=== PATIENT | male | born 1950 | race Caucasian/White ===

== ENCOUNTER 2016-06-29 21:30 | Inpatient (IN) | payer OTHER ==
[~2016-06-29] VITALS: Ht 177.8 cm; Wt 85.3 kg
[2016-06-29] MEDS ORDERED: SIMV20TA2 PO (21:35)
[2016-06-29] MEDS ORDERED: FLM4 PO (21:35)
[2016-06-29] MEDS ORDERED: ONDANSETRON INJ 2 MG/ML 2 ML VIAL ONE (21:44)
[2016-06-29] MEDS ORDERED: FENTANYL CITRATE INJ 50 MCG/1 ML 2 ML VIAL ONE (21:47)
[2016-06-29] MEDS ORDERED: HEPARIN SOD (PORCINE) 1000 UNIT/ML 10 ML VIAL ONE (21:47)
[2016-06-29] MEDS ORDERED: NiCARDipine HCL INJ 2.5 MG/ML 10 ML AMP ONE (21:47)
[2016-06-29] MEDS ORDERED: NITROGLYCERIN/D5W 100MCG/ML 20ML SYR ONE (21:48)
[2016-06-29] MEDS ORDERED: MIDAZOLAM HCL 1 MG/ML 2ML VIAL ONE (21:48)
[2016-06-29 21:52] LABS: BASO % 0.2 %; BASO ABS # 0.02 K/uL (0-0.2); COMPLETE YES; EOS % 0.8 %; HEMATOCRIT 40.9 % (42-52); IG% 0.2 %; LYMPH % 16.5 %; LYMPH ABS # 2.05 K/uL (1.2-3.4); MEAN CELL VOLUME 89.7 fL (80-100); MEAN CORPUSCULAR HEMOGLOBIN 30.5 pg (25-34); MEAN PLATELET VOLUME 10.4 fL (7.4-10.4); MONO % 3.9 %; NEUT % 78.4 %; PLATELET COUNT 190 K/uL (130-400); RED BLOOD COUNT 4.56 M/uL (4.7-6.1); WHITE BLOOD COUNT 12.44 K/uL (4.8-10.8)
[2016-06-29 21:56] LABS: ISTAT CREATININE 1.2 mg/dl (0.6-1.3); ISTAT HEMOGLOBIN 13.9 g/dl (14.0-18.0); ISTAT IONIZED CALCIUM 1.08 mmol/l (1.12-1.32)
[2016-06-29 22:06] LABS: INR 0.9 (0.9-1.1); PARTIAL THROMBOPLASTIN RATIO 0.9; PROTHROMBIN TIME (PATIENT) 10.1 SECONDS (9.0-12.0)
--- NOTE | 2016-06-29 22:11 | DIAGNOSTIC IMAGING REPORT ---
CHEST ONE VIEW PORTABLE HISTORY: Atypical CHEST PAIN COMPARISON: None. FINDINGS: The lungs are clear. Cardiac silhouette is normal in size. No pleural effusions. No pneumothorax. IMPRESSION: No acute process. Electronically signed by: Javier Black M.D. 06/29/2016 10:09 PM Dictated Date/Time: 06/29/2016 10:09 PM
[2016-06-29 22:16] LABS: BUN/CREATININE RATIO 17.5 (10-20); CREATININE 1.3 mg/dl (0.60-1.40); POTASSIUM 3.4 mmol/L (3.5-5.1)
[2016-06-29 22:17] LABS: CALCIUM 8.9 mg/dl (8.5-10.1)
[2016-06-29 22:21] LABS: CKMB/CK RATIO 4.4 (0-3.0)
[2016-06-29 23:00] VITALS: BP 116/72; PULSE 79; TEMP 36.6; O2SAT 97; Ht 177.8 cm; Wt 85.3 kg
--- NOTE | 2016-06-29 23:11 | Critical Care Consultation ---
Critical Care Consultation Date of Consultation: June 29, 2016. Attending Physician: Dr. Espinoza Reason for Consultation: Chest Pain 2/2 STEMI History of Present Illness Ken Matt is a 46-year-old male who presented to the emergency Department at [facility] via EMS after experiencing sudden onset 10 out of 10 chest pain while weed eating at home this afternoon. He states the pain originally came on directly over his mid sternum and caused him to stop his activity. He states that he started to have back to the house and at times had to sit down secondary to the pain and take breaks. He states it took approximately 2-3 attempts to get back to the house. After approximately 20 minutes the pain subsided. He states that he did take one aspirin that he allow to dissolve under his tongue. Pain subsided to the extent that he was able to go upstairs and shower and change in the fresh clothing. Afterwards he started to feel a dull ache return at which time he became diaphoretic and nauseous. He denies any vomiting during this period. At this time he called his and alerted her to what was going on. EMS was called and during his trip into the hospital the pain returned. According to him he received morphine at this time; which did take away the extreme pain but he could still feel a dull ache in the sternum. Upon arrival in the emergency room patient's pain was rated at a 2 out of 10. He did received aspirin, nitroglycerin, and morphine prior to arrival from EMS. He denies that the pain he felt radiated or moved anywhere other than the midsternum. He denies recent illness, fever, or chills. He has experienced no numbness or tingling. Patient underwent an EKG in the emergency department that demonstrated ST elevation anteriorly with T-wave changes consistent with an NV. Reciprocal changes were noted in the inferior leads. Patient was taken to the [facility] by Dr. Hernandez; where his proximal to mid LAD was ballooned without stenting via a right radial approach. TR Band is currently in place with 14cc of air. Pt has Integrilin running via PIV. I've been told at this point due to multivessel disease and a need for bypass surgery patient is to be transferred non-emergently to alternate facility in the morning. Patient arrived in the ICU pain-free. He is alert and oriented 4 and able to recall the events of the day. Family is now at bedside. Past Medical/Surgical History Past medical history BPH Hyperlipidemia Appendicitis STEMI to LAD Past surgical history Coronary Angioplasty Appendectomy Tonsillectomy/ adenoidectomy Colonoscopy 06/04/2016 Family History Diabetes mellitus MOTHER FH: NV (myocardial infarction) MOTHER ( age 72) Stroke GRANDMOTHER Social History Smoking Status: Never Smoker Smokeless Tobacco Use: No Drug Use: none Marital Status: Housing Status: lives with family Occupation Status: employed ([employer]) Allergies Coded Allergies: Penicillins (Unverified Allergy, Unknown, UNKNOWN, 06/29/16) Home Medications Scheduled Simvastatin (Zocor), 20 MG PO QPM Tamsulosin HCl (Tamsulosin HCl), 0.4 MG PO HS Review of Systems 12 systems reviewed and negative other than previously mentioned in the HPI. Physical Exam Date Time Temp Pulse Resp B/P Pulse Ox O2 Delivery O2 Flow Rate FiO2 06/29/16 21:51 119/71 06/29/16 21:50 Nasal Cannula 2.0 06/29/16 21:50 69 133/74 99 06/29/16 21:45 64 100 06/29/16 21:41 122/65 06/29/16 21:40 72 100 06/29/16 21:36 115/73 06/29/16 21:36 100 Nasal Cannula 2.0 06/29/16 21:35 67 06/29/16 21:35 67 99 06/29/16 21:34 121/67 06/29/16 21:32 36.5 68 16 115/73 100 Nasal Cannula 2.0 06/29/16 21:32 100 Room Air 2.0 Vital Signs - as noted Laboratory Data - as noted Physical Exam: General - NAD Eyes - PERRL, EOMI No icterus, gaze conjugate ENT - Mucosa moist, no lesions or candidiasis Neck - Supple, trachea midline, no masses or lymphadenopathy, no JVD or bruits Lungs - No paradoxical chest wall movement, clear to auscultation bilaterally, no wheezes, rales, or rhonchi Heart - Reg rate and rhythm, No murmur, rubs, clicks, or gallops appreciated Abdomen - BS present, no bruits noted, tympanic to percussion, soft, nontender, nondistended, no organomegaly Extremities - No edema, pedal pulses intact Neuro - A&O x 4 Strength extremities equal and appropriate bilaterally Reflexes: Normal and equal CN:PERRL, EOMI, no facial asymmetry, uvula/tongue midline Laboratory Results Last 24 Hours Test 06/29/16 21:37 06/29/16 21:40 06/29/16 21:44 06/29/16 21:45 Creatine Kinase MB Ratio 4.4 Bedside Troponin I 0.060 ng/ml Bedside Hemoglobin 13.9 g/dl Bedside Hematocrit 41 % Bedside Sodium 140 mEq/L Bedside Potassium 3.5 mEq/L Bedside Chloride 101 mEq/L Bedside Total CO2 22 mEq/l Anion Gap 21.0 mmol/L 9.0 mmol/L Bedside Blood Urea Nitrogen 23 mg/dl Bedside Creatinine 1.2 mg/dl Bedside Glucose (other) 157 mg/dl Bedside Ionized Calcium (River) 1.08 mmol/l White Blood Count 12.44 K/uL Red Blood Count 4.56 M/uL Hemoglobin 13.9 g/dL Hematocrit 40.9 % Mean Corpuscular Volume 89.7 fL Mean Corpuscular Hemoglobin 30.5 pg Mean Corpuscular Hemoglobin Concent 34.0 g/dl Platelet Count 190 K/uL Mean Platelet Volume 10.4 fL Neutrophils (%) (Auto) 78.4 % Lymphocytes (%) (Auto) 16.5 % Monocytes (%) (Auto) 3.9 % Eosinophils (%) (Auto) 0.8 % Basophils (%) (Auto) 0.2 % Neutrophils # (Auto) 9.76 K/uL Lymphocytes # (Auto) 2.05 K/uL Monocytes # (Auto) 0.48 K/uL Eosinophils # (Auto) 0.10 K/uL Basophils # (Auto) 0.02 K/uL RDW Standard Deviation 42.3 fL RDW Coefficient of Variation 13.0 % Immature Granulocyte % (Auto) 0.2 % Immature Granulocyte # (Auto) 0.03 K/uL Prothrombin Time 10.1 SECONDS Prothromb Time International Ratio 0.9 Activated Partial Thromboplast Time 24.6 SECONDS Partial Thromboplastin Ratio 0.9 Sodium Level 139 mmol/L Potassium Level 3.4 mmol/L Chloride Level 104 mmol/L Carbon Dioxide Level 26 mmol/L Blood Urea Nitrogen 23 mg/dl Creatinine 1.30 mg/dl Est Creatinine Clear Calc Drug Dose 59.3 ml/min Estimated GFR () 66.8 Estimated GFR (Non- 57.7 BUN/Creatinine Ratio 17.5 Random Glucose 152 mg/dl Calcium Level 8.9 mg/dl Total Bilirubin 0.6 mg/dl Direct Bilirubin 0.1 mg/dl Aspartate Amino Transf (AST/SGOT) 24 U/L Alanine Aminotransferase (ALT/SGPT) 30 U/L Alkaline Phosphatase 60 U/L Total Creatine Kinase 152 U/L Creatine Kinase MB 6.7 ng/ml Total Protein 7.2 gm/dl Albumin 3.7 gm/dl Lipase 180 U/L Test 06/29/16 22:26 Kaolin Activated Coagulation Time 420 SECONDS Diagnostic Results EKG: Indication: chest pain Rate (beats per minute): 65 Rhythm: normal sinus Findings: other (ST and T wave elevation anteriorly consistent with NV) Comparison ECG Date: no prior available Change: Prehospital EKG #1: sinus bradycardia, rate 52, inferior and anterior ST abnormality, no old for comparison Prehospital EKG # 2: NSR, rate 66, ST segment elevation anteriorly with reciprocal inferior changes consistent with NV. Prehospital EKG #3: NSR, rate 67, anterior NV, no change from EKG #2 CHEST ONE VIEW PORTABLE HISTORY: Atypical CHEST PAIN COMPARISON: None. FINDINGS: The lungs are clear. Cardiac silhouette is normal in size. No pleural effusions. No pneumothorax. IMPRESSION: No acute process. Electronically signed by: Javier Black M.D. 06/29/2016 10:09 PM Dictated Date/Time: 06/29/2016 10:09 PM Assessment & Plan (1) Acute anterior myocardial infarction (2) High cholesterol Cardiac: * Right radial approach with ballooning to the anterior to middle LAD by Dr. Hernandez * Spoke with Dr. Hernandez: Plan to continue Integrilin indefinitely until transfer and surgical plan from [place] * Plan to transfer to [place] in the morning to a facility with coronary bypass capabilities * Trend cardiac enzymes * Monitor on telemetry * TR Band in place on right radial approach * Mild bleeding continues when pressure reduced; continue to removed per protocol * Begin post NV medications in the morning * Lopressor 25 mg every 12 * Aspirin 81 mg qAM PO * Lisinopril 5 mg qAM PO * Atorvastatin 80 mg qAM PO * EKG in AM and with recurrent Chest Pain Pulmonary: * Currently stable with adequate saturation and without complaint of SOB * Supplemental oxygen as needed * No known smoking history Neuro: * Pain well controlled * Alert provider to recurrent chest pain GI: * Begin AHA diet with breakfast * Patient states no change in bowel habits * Protonix 40 mg qDaily PO in place * Bowel Regimen in place : * Replacement fluids at 125mL/hr via NSS * No Cannon in place, patient voiding * Monitor daily labs Endocrine: * No past medical history for diabetes/thyroid disease * Accu-Cheks per protocol Infectious disease: * No acute process * Monitor fever curve and daily CBC Heme: * H&H & Plts stable * No signs of gross bleeding * Monitor daily CBC * DVT Prophylaxis: SCDs ordered (pt received Heparin 13k Units and currently on Integrilin infusion) Access: [address], maintain 2 sites. Currently no indication for central access. CCT: 0 minutes; Level 3 Inpatient H&P; Not including any billable procedures. Thank you for including us in the care of this patient. Please review Dr. Gareth Castellon's addendum for further recommendations. I have personally evaluated and examined this patient. I agree with assessment and plan of Ori Stiles PA-C. Asymptomatic during my evaluation, will continue Integrilin during transfer. Allowed clears until transfer time determined.
[2016-06-29 23:31] VITALS: BP 116/72; PULSE 76; O2SAT 96
--- NOTE | 2016-06-29 23:31 | EMERGENCY ROOM VISIT NOTE ---
History Report prepared by Jannette: Yandy Turner Under the Supervision of: Dr. Gareth Oropeza M.D. First contact with patient: 21:24 Chief Complaint: CHEST PAIN Stated Complaint: CHEST PAIN History of Present Illness The patient is a 66 year old male who presents to the Emergency Room with complaints of persistent chest pain starting 2 hours ago. He was out weed whacking when the pain started. He felt a sharp pain in his sternum. He was diaphoretic, nauseous, and lightheaded. At worst he rates his discomfort as a 10 /10 in severity. He comes to the ED by EMS. 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 He currently rates his discomfort as a 2/10 in severity after the morphine. He denies any arm pain, neck pain, or back pain. He did not vomit. He denies any pain or swelling in the legs, melena, or hematochezia. He has a history of high cholesterol. He denies any family history of heart problems. He denies smoking. 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 Source of History: patient, spouse/significant other, EMS Onset: 2 hours ago Position: chest Symptom Intensity: 10/10 at worst Quality: sharp Timing: other (persistent) Modifying Factors (Relieving): other (morphine) Associated Symptoms: + diaphoresis, + nausea, No back pain, No hematochezia , No melena, No neck pain, No vomiting Note: Pt reports feeling lightheaded. Pt denies arm pain, pain or swelling in the legs. Review of Systems See HPI for pertinent positives & negatives. A total of 10 systems reviewed and were otherwise negative. Past Medical & Surgical Medical Problems: (1) High cholesterol Old medical records were attempted to be reviewed but there are no old records at this hospital. Nurse's notes were reviewed and I agree with. Family History No pertinent family history stated. Social History Marital Status: Housing Status: lives with family Occupation Status: employed Current/Historical Medications Scheduled Simvastatin (Zocor), 20 MG PO QPM Tamsulosin HCl (Tamsulosin HCl), 0.4 MG PO HS Allergies Coded Allergies: Penicillins (Unverified Allergy, Unknown, UNKNOWN, 06/29/16) Physical Exam Vital Signs Date Time Temp Pulse Resp B/P Pulse Ox O2 Delivery O2 Flow Rate FiO2 06/29/16 23:10 70 16 136/95 95 Room Air 06/29/16 23:00 70 16 126/80 95 Room Air 06/29/16 21:51 119/71 06/29/16 21:50 Nasal Cannula 2.0 06/29/16 21:50 69 133/74 99 06/29/16 21:45 64 100 06/29/16 21:41 122/65 06/29/16 21:40 72 100 06/29/16 21:36 115/73 06/29/16 21:36 100 Nasal Cannula 2.0 06/29/16 21:35 67 06/29/16 21:35 67 99 06/29/16 21:34 121/67 06/29/16 21:32 36.5 68 16 115/73 100 Nasal Cannula 2.0 06/29/16 21:32 100 Room Air 2.0 Physical Exam General: Mildly ill appearing middle aged male who complains of 2/10 chest discomfort. Well developed well nourished, breathing comfortably on room air. Normal speech HEENT: Normal cephalic atraumatic. Pupils are equal round and reactive to light. Sclerae are anicteric. Extraocular movements are intact. Oropharynx is pink with moist mucous membranes. No swelling of the mouth lips or tongue. Neck: Supple with a midline trachea. No meningeal signs or stiffness, no JVD or bruits. No Stridor. Chest: Clear to auscultation bilaterally. No wheezes or rhonchi. No increased work of breathing. Heart: regular rate and rhythm. Abdomen: Soft nontender, nondistended without rebound guarding or rigidity. Extremities: No cyanosis clubbing or edema. No calf tenderness or assymetry Spine/Back. Non tender to palpation. No CVA tenderness Skin: Good turgor without rashes. Neurologic exam: Cranial nerves two through 12 are intact. Motor and sensation are intact and symmetrical throughout. Medical Decision & Procedures ER Provider Diagnostic Interpretation: X-ray results as stated below per interpretation by me: Chest X-ray: No acute infiltrate, failure, or pneumothorax. Laboratory Results 06/29/16 21:45 Red Blood Count 4.56, Mean Corpuscular Volume 89.7, Mean Corpuscular Hemoglobin 30.5, Mean Corpuscular Hemoglobin Concent 34.0, Mean Platelet Volume 10.4, Neutrophils (%) (Auto) 78.4, Lymphocytes (%) (Auto) 16.5, Monocytes (%) (Auto) 3.9, Eosinophils (%) (Auto) 0.8, Basophils (%) (Auto) 0.2, Neutrophils # (Auto) 9.76, Lymphocytes # (Auto) 2.05, Monocytes # (Auto) 0.48, Eosinophils # (Auto) 0.10, Basophils # (Auto) 0.02 06/29/16 21:45 Test 06/29/16 21:40 06/29/16 21:44 06/29/16 21:45 06/29/16 22:26 Bedside Troponin I 0.060 ng/ml (0-0.045) Bedside Hemoglobin 13.9 g/dl (14.0-18.0) Bedside Hematocrit 41 % (42-52) Bedside Sodium 140 mEq/L (135-144) Bedside Potassium 3.5 mEq/L (3.3-5.0) Bedside Chloride 101 mEq/L (101-112) Bedside Total CO2 22 mEq/l (24-31) Bedside Blood Urea Nitrogen 23 mg/dl (7-18) Bedside Creatinine 1.2 mg/dl (0.6-1.3) Bedside Glucose (other) 157 mg/dl (70-99) Bedside Ionized Calcium (River) 1.08 mmol/l (1.12-1.32) White Blood Count 12.44 K/uL (4.8-10.8) Red Blood Count 4.56 M/uL (4.7-6.1) Hemoglobin 13.9 g/dL (14.0-18.0) Hematocrit 40.9 % (42-52) Mean Corpuscular Volume 89.7 fL (80-100) Mean Corpuscular Hemoglobin 30.5 pg (25-34) Mean Corpuscular Hemoglobin Concent 34.0 g/dl (32-36) Platelet Count 190 K/uL (130-400) Mean Platelet Volume 10.4 fL (7.4-10.4) Neutrophils (%) (Auto) 78.4 % Lymphocytes (%) (Auto) 16.5 % Monocytes (%) (Auto) 3.9 % Eosinophils (%) (Auto) 0.8 % Basophils (%) (Auto) 0.2 % Neutrophils # (Auto) 9.76 K/uL (1.4-6.5) Lymphocytes # (Auto) 2.05 K/uL (1.2-3.4) Monocytes # (Auto) 0.48 K/uL (0.11-0.59) Eosinophils # (Auto) 0.10 K/uL (0-0.5) Basophils # (Auto) 0.02 K/uL (0-0.2) RDW Standard Deviation 42.3 fL (36.4-46.3) RDW Coefficient of Variation 13.0 % (11.5-14.5) Immature Granulocyte % (Auto) 0.2 % Immature Granulocyte # (Auto) 0.03 K/uL (0.00-0.02) Prothrombin Time 10.1 SECONDS (9.0-12.0) Prothromb Time International Ratio 0.9 (0.9-1.1) Activated Partial Thromboplast Time 24.6 SECONDS (21.0-31.0) Partial Thromboplastin Ratio 0.9 Anion Gap 9.0 mmol/L (3-11) Est Creatinine Clear Calc Drug Dose 59.3 ml/min Estimated GFR () 66.8 Estimated GFR (Non- 57.7 BUN/Creatinine Ratio 17.5 (10-20) Calcium Level 8.9 mg/dl (8.5-10.1) Total Bilirubin 0.6 mg/dl (0.2-1) Direct Bilirubin 0.1 mg/dl (0-0.2) Aspartate Amino Transf (AST/SGOT) 24 U/L (15-37) Alanine Aminotransferase (ALT/SGPT) 30 U/L (12-78) Alkaline Phosphatase 60 U/L (45-117) Total Creatine Kinase 152 U/L (39-308) Creatine Kinase MB 6.7 ng/ml (0.5-3.6) Creatine Kinase MB Ratio 4.4 (0-3.0) Total Protein 7.2 gm/dl (6.4-8.2) Albumin 3.7 gm/dl (3.4-5.0) Lipase 180 U/L (73-393) Kaolin Activated Coagulation Time 420 SECONDS (94-140) Laboratory studies as stated above per my review. Medications Administered Medications (Trade) Dose Ordered Sig/Lou Route Start Time Stop Time Status Last Admin Dose Admin Ondansetron HCl (Zofran Inj) 4 mg K-MED ONCE .ROUTE 06/29/16 21:44 06/29/16 21:45 DC 06/29/16 21:44 4 MG Heparin Sodium (Porcine) (Heparin Iv Bolus) 10,000 unit STK-MED ONCE .ROUTE 06/29/16 21:47 06/29/16 21:48 DC 06/29/16 21:47 10,000 UNIT Fentanyl Citrate (Fentanyl Inj) 100 mcg STK-MED ONCE .ROUTE 06/29/16 21:47 06/29/16 21:48 DC 06/29/16 21:47 100 MCG Midazolam HCl (Versed Inj) 2 mg STK-MED ONCE .ROUTE 06/29/16 21:48 06/29/16 21:49 DC 06/29/16 21:48 1 MG ECG Indication: chest pain Rate (beats per minute): 65 Rhythm: normal sinus Findings: other (ST and T wave elevation anteriorly consistent with WY) Comparison ECG Date: no prior available Change: Prehospital EKG #1: sinus bradycardia, rate 52, inferior and anterior ST abnormality, no old for comparison Prehospital EKG # 2: NSR, rate 66, ST segment elevation anteriorly with reciprocal inferior changes consistent with WY. Prehospital EKG #3: NSR, rate 67, anterior WY, no change from EKG #2 ED Course 2130: Past medical records reviewed. The patient was evaluated in room A1, and a complete history and physical examination were performed. 2137: I spoke with the patient's . I updated her on what is happening. 2143: Zofran Inj 4 mg IV. 2154: I discussed the patient's case with Dr. Hernandez, [facility] [place] - cardiology. The patient will be taken to the blood bank laboratory technician. 2157: I reevaluated the patient. He is comfortable. I updated him on the results and treatment plan. He verbalized understanding and agreement. He will be taken to the blood bank laboratory technician. Medical Decision Differentials include, but are not limited to; acute WY, aortic pathology, unstable angina, CHF, arrhythmia, electrolyte or metabolic abnormality. This patient comes in after having chest pain. EMS called ahead of time and the patient had findings on the EKG very concerning for an acute anterior WY. Several EKGs were sent and this showed evolution. I did call a heart alert prior to his arrival to get the cardiac cath team ready. He was given aspirin and nitroglycerin and morphine prior to arrival in the morphine seemed to help the pain. Upon arrival he only had 2 out of 10 pain. A second IV was established. Chest x-ray does not suggest congestive heart failure, pneumonia, or pneumothorax or aortic pathology. He has normal kidney function. Troponin was mildly elevated at 0.06. I talked to the patient and his family at length. He did have an episode of nausea and was given Zofran 4 mg IV was feeling much better Dr. Hernandez did arrive and did take him emergently the Rolled Glass Crosscutter for acute treatment of his acute [place]Y. Consults Time Called: 2144 Consulting Physician: Dr. Hernandez, [facility] [place] [place] - cardiology Returned Call: [phone] I discussed the patient's case with him. The patient will be taken to the blood bank laboratory technician. Impression Primary Impression: Acute anterior myocardial infarction Critical Care Due to the patient's acute WY and need for emergent care and frequent reassessments, I have personally spent greater than 30 minutes of critical care time in the direct management of this patient. This includes bedside care, interpretation of diagnostic studies, and testing, discussion with consultants, patient, and family members, and other required patient management activities. This 30 minutes is in excess of all separately billable procedures. Scribe Attestation The scribe's documentation has been prepared under my direction and personally reviewed by me in its entirety. I confirm that the note above accurately reflects all work, treatment, procedures, and medical decision making performed by me. Departure Information Dispostion Other (blood bank laboratory technician) Patient Instructions [facility]
[2016-06-29 23:45] VITALS: BP 110/66; PULSE 77; O2SAT 97
[2016-06-29] MEDS ORDERED: EPTIFIBATIDE BOLUS / DRIP IV ONE (23:45)
[2016-06-29] MEDS ORDERED: NITROGLYCERIN 0.4 MG SL PER TAB CHARGE SL PRN (23:45)
[2016-06-29] MEDS ORDERED: SODIUM CHLORIDE 0.9% 1000ML 1,000 ML IV SCH (23:45)
[2016-06-29] MEDS ORDERED: LORAZEPAM INJ 0.5 MG in SYRINGE 0 ML IV PRN (23:45)
[2016-06-29] MEDS ORDERED: ONDANSETRON INJ 2 MG/ML 2 ML VIAL IV PRN (23:45)
[2016-06-29] MEDS ORDERED: ATROPINE SULFATE 0.1 MG/ML 5ML SYR IV PRN (23:45)
[2016-06-29] MEDS ORDERED: ALUMINUM/MAGNESIUM/SIMETH (MAALOX MAX) 30 ML UDC PO PRN (23:45)
[2016-06-29] MEDS ORDERED: MAGNESIUM HYDROXIDE SUSP 30 ML UDC PO PRN (23:45)
[2016-06-29] MEDS ORDERED: ACETAMINOPHEN 325 MG TAB PO PRN (23:45)
[2016-06-29] MEDS ORDERED: MoRPHine SULFATE 2 MG/ML CARP IV PRN (23:45)
[2016-06-29 23:46] VITALS: BP 114/65; PULSE 75; O2SAT 97
--- NOTE | 2016-06-29 23:50 | Procedure Note ---
Pre-Mod Sedation Assessment General Date of Moderate Sedation: June 29, 2016. Vital Signs: Vital Signs Past 12 Hours Date Time Temp Pulse Resp B/P Pulse Ox O2 Delivery O2 Flow Rate FiO2 06/29/16 23:10 70 16 136/95 95 Room Air 06/29/16 23:00 70 16 126/80 95 Room Air 06/29/16 21:51 119/71 06/29/16 21:50 Nasal Cannula 2.0 06/29/16 21:50 69 133/74 99 06/29/16 21:45 64 100 06/29/16 21:41 122/65 06/29/16 21:40 72 100 06/29/16 21:36 115/73 06/29/16 21:36 100 Nasal Cannula 2.0 06/29/16 21:35 67 06/29/16 21:35 67 99 06/29/16 21:34 121/67 06/29/16 21:32 36.5 68 16 115/73 100 Nasal Cannula 2.0 06/29/16 21:32 100 Room Air 2.0 Review Cardiovascular: regular rate, rhythm, no edema, no gallop, no JVD, no murmur, normal peripheral pulses Abdomen: normal bowel sounds, non tender, soft, no organomegaly, no pulsatile mass Lungs: lungs clear Pre-Sedation Airway Assessment Oral Cavity: Capped Teeth Able to Visualize Vocal Cords: No Short Thick Neck: No Hx of Sleep Apnea: No Smoking Status: Never Smoker ASA Classification: Class III Procedure Planning Contraindications-for Mod Sed: None Yes Notes The planned sedation has been discussed with the patient and consent obtained. I have identified the patient, determined the appropriateness of sedation and have assessed the patient immediately prior to the procedure. All medicine(s) and interventions are by my order.
--- NOTE | 2016-06-29 23:51 | Procedure Note ---
Post-Mod Sedation Assessment General Date of Moderate Sedation June 29, 2016. Vital Signs: Vital Signs Past 12 Hours Date Time Temp Pulse Resp B/P Pulse Ox O2 Delivery O2 Flow Rate FiO2 06/29/16 23:10 70 16 136/95 95 Room Air 06/29/16 23:00 70 16 126/80 95 Room Air 06/29/16 21:51 119/71 06/29/16 21:50 Nasal Cannula 2.0 06/29/16 21:50 69 133/74 99 06/29/16 21:45 64 100 06/29/16 21:41 122/65 06/29/16 21:40 72 100 06/29/16 21:36 115/73 06/29/16 21:36 100 Nasal Cannula 2.0 06/29/16 21:35 67 06/29/16 21:35 67 99 06/29/16 21:34 121/67 06/29/16 21:32 36.5 68 16 115/73 100 Nasal Cannula 2.0 06/29/16 21:32 100 Room Air 2.0 Review - Discharge Criteria Vital Signs Stable: Yes Alert/Oriented/Conversant: Yes Returned to Baseline Mental St: Yes Nausea Absent/Minimal: Yes Pain/Discomfort/Absent/Minimal: Yes Normal/Baseline Respirations: Yes Active Bleeding?: No Pt Received D/C Instructions: N/A Prescriptions Given: None Specific Proced. D/C Criteria Distal Pulses Present (Cardiac: Yes Groin site assessed-Card Cath: N/A Voided Prior To Discharge: N/A Discharged Patients Adult Escort/Transportation: N/A
[2016-06-29 23:59] VITALS: O2SAT 95
[2016-06-30] VITALS (42 sets, daily range): BP systolic 90–132; BP diastolic 58–70; PULSE 44–83; TEMP 36.5–37; O2SAT 93–100
[2016-06-30 00:23] LABS: HEMATOCRIT 41.3 % (42-52); MEAN CELL VOLUME 90.4 fL (80-100); MEAN CORPUSCULAR HEMOGLOBIN 29.8 pg (25-34); MEAN PLATELET VOLUME 10.2 fL (7.4-10.4); PLATELET COUNT 169 K/uL (130-400); RED BLOOD COUNT 4.57 M/uL (4.7-6.1); WHITE BLOOD COUNT 11.68 K/uL (4.8-10.8)
[2016-06-30 00:36] LABS: MEAN CORPUSCULAR HGB CONC 32.9 g/dl (32-36)
[2016-06-30 00:42] LABS: BASO % 0.1 %; BASO ABS # 0.01 K/uL (0-0.2); COMPLETE YES; EOS % 0.2 %; IG% 0.3 %; LYMPH % 9.2 %; LYMPH ABS # 1.07 K/uL (1.2-3.4); MONO % 2.8 %; NEUT % 87.4 %
[2016-06-30 00:44] LABS: BLOOD UREA NITROGEN 20 mg/dl (7-18); BUN/CREATININE RATIO 18.5 (10-20); CALCIUM 8.1 mg/dl (8.5-10.1); CARBON DIOXIDE 29 mmol/L (21-32); CHLORIDE 107 mmol/L (98-107); GLUCOSE 114 mg/dl (70-99); POTASSIUM 4.1 mmol/L (3.5-5.1); SODIUM 142 mmol/L (136-145)
[2016-06-30 00:48] LABS: CHOLESTEROL 169 mg/dl (0-200); CHOLESTEROL/HDL RATIO 2.7; CKMB/CK RATIO 12.8 (0-3.0); HDL CHOLESTEROL 62 mg/dl; TRIGLYCERIDES 39 mg/dl (0-150); VERY LOW DENSITY LIPOPROT CALC 8 mg/dl
--- NOTE | 2016-06-30 00:52 | Cardiac Catheterization ---
Procedure Note Procedure Date June 30, 2016. Pre-Procedure Diagnosis STEMI AUC Score 9 Procedure(s) Performed Coronary Angiography, Left Heart Cath, LV Angiography, PTCA Voip Engineer Dr. Hernandez Exhaust Worker(s) HOLLIS Hernández Estimated Blood Loss 35 ml Medication(s) Fentanyl, Heparin, Integrilin, Nicardipine (Intra-arterial and intracoronary), Versed, Lidocaine 1% Summary of Findings Clinical indications: Acute anterior ST-elevation myocardial infarction. Only known CAD risk factor is dyslipidemia. Catheterization site: 6 Barb[place] glide sheath slender right radial artery. Catheters: 6 [place] EBU 3.75 guide catheter, 6 [place] JR4 diagnostic catheter, 6 [place] pigtail diagnostic catheter. Interventional equipment: 6 Barb[place] EBU 3.75 guide catheter, Datacratic [place] XT J-tip guidewire, Datacratic Sprinter [id number] 2.5 x 12 millimeter balloon dilatation catheter. Interventional protocol: Intravenous heparin and Integrilin were administered. Therapeutic activated clotting time documented. Nine balloon inflations performed to proximal and mid LAD to maximum inflation pressure 14 atmospheres and maximum duration 14 seconds. Follow-up angiography then performed with the guidewire in place and guidewire withdrawn. Right coronary angiography was performed following completion of LAD PCI. Left heart catheterization left ventricular angiography were then performed. Left ventricular angiography was performed from the 30 degree right anterior oblique projection with a hand injection of contrast dye. Hemostasis: Terumo TR band. Complications: None. The patient was hemodynamically stable throughout the procedure. No significant arrhythmias. Resolution of chest pain following reperfusion of the LAD. Findings: Fluoroscopy revealed mild coronary calcifications.Coronary circulation was right dominant. Large caliber left main coronary artery giving rise to large caliber left anterior descending and left circumflex coronary arteries. The ostium of the LAD had a 75 percent stenosis. The proximal LAD had an eccentric 80 percent stenosis with associated thrombus. At this site the LAD gave rise to very small caliber 1st diagonal artery. The early mid LAD had a 30 percent stenosis then followed by a subtotal 99 percent stenosis. This was then followed by sequential 70 percent stenoses. The mid LAD gave rise to a small caliber 2nd diagonal artery. BREE 1 flow was present into the distal LAD and the 2nd diagonal. Following passage of a guidewire into the distal LAD BREE 2 flow was established to the distal LAD. The LAD was seen to wrap around the apex of the heart as a small caliber vessel. Following PTCA BREE 3 flow was present in the LAD and LAD diagonal. There was brisk flow into the septal perforating branches arising from the LAD. There was a good myocardial blush. After PTCA residual proximal stenosis was 20-30 percent. The residual stenoses in the mid LAD were 10-20 percent, 50 percent, 30 percent. The distal LAD had minor luminal irregularities. It wraps around the apex of the heart as a small caliber vessel. There was no evidence of dissection, residual thrombus, perforation, or distal embolic event. The ostial left circumflex had a 20 percent stenosis. The proximal circumflex had minor luminal irregularities. Mid circumflex gave rise to medium caliber 1st marginal artery. The ostium of the 1st marginal had a 75 percent stenosis. The mid LAD immediately following the origin of the marginal had a 75 percent stenosis. These stenoses were a bifurcation stenosis. The mid left circumflex following the 75 percent stenosis had a possible ulcerated plaque. The distal circumflex gave rise to a long medium to large caliber bifurcating 2nd marginal artery. The right coronary artery was a medium caliber vessel. 20 percent proximal stenosis. Mid RCA with diffuse 20-40 percent stenoses. The mid RCA then had a discrete and eccentric 75 percent stenosis where it gave rise to a right ventricular branch. After the right ventricular branch the early distal RCA had an eccentric 50 percent stenosis. The remainder of the distal RCA had minor luminal irregularities. The distal RCA gave rise to a very small caliber acute marginal artery and a very small caliber PDA. It then gave rise to 2 small caliber posterolateral arteries. Left ventricular angiography revealed the posterobasal, anterobasal, and diaphragmatic segments to contract normally. The apex and anterolateral segments were hypokinetic. No mitral regurgitation. The calculated left ventricular ejection fraction was 57 percent. Plan: The patient has 3 vessel coronary artery disease. The infarct related lesions were the severe proximal and mid LAD stenoses. Successful plain balloon angioplasty to these lesions. The patient still has a moderate ostial LAD stenosis, a moderate bifurcation stenosis in the left circumflex, and moderate stenoses in the RCA. He has good overall LV systolic function. It was felt best not to deploy stents in the proximal and mid LAD. This would have required an extensive amount of stenting. The patient would still be left with a significant ostial LAD stenosis. It is planned for the patient to remain on aspirin and Integrilin at this time. Will be started on beta-jorden and RUPESH-inhibitor therapy. Will be placed on high-intensity statin therapy. Echocardiogram in the morning to further assess left ventricular systolic function and assess valvular function. Serial electrocardiograms and cardiac enzymes. Check lipid profile, direct LDL, hemoglobin A1c. Post PCI CBC and metabolic profiles. Recommend transfer to [facility] in [facility] for consideration of CABG surgery. This is in light of the ostial LAD stenosis, the bifurcation stenosis in the left circumflex, and the 3 vessel coronary artery disease. Hemodynamics Rest Ao: 100/57/77 mm Hg Final Ao: 98/56/75 mm Hg LV: 98/23 mm Hg Recommendations CABG Specimens None Radiation Exposure (mGy) 3136 Contrast (mls) 260 ml Visipaque Fluids (cc crystalloids) 600 Drains none Anesthesia IV Versed and fentanyl, lidocaine 1 percent for local Procedural Complication(s) None Disposition ICU ACC Data Cardiac Status Clinical evaluation leading to the procedure CAD Presntation: STEMI STEMI or Non-STEMI: Thrombolytics: No Anginal Classification: CCS IV Heart Failure: No Cardiogenic Shock w/in 24Hrs: No Cardiac Arrest w/in 24Hrs: No Imaging studies past 6 months: No Stress studies past 6 months: No Standard Exercise Stress Test: No Stress Echocardiogram: No Stress Testing w/SPECT MPI: No Cardiac CTA: No Coronary Anatomy Dominant: Right Left Main (% Stenosis): Normal LAD (% Stenosis): Ostial (75), Proximal (80), Mid (30,99,70,70), Distal (0-10) D1 (% Stenosis): Normal D2 (% Stenosis): Normal Circumflex (% Stenosis): Ostial (20), Proximal (0-10), Mid (75) OM1 (% Stenosis): Ostial (75) OM2 (% Stenosis): Mid (0-10) RCA (% Stenosis): Proximal (20), Mid (diffuse 20-40, 75), Distal (50,0-10) R PDA (% Stenosis): Normal R PL1 (% Stenosis): Normal R PL2 (% Stenosis): Normal Left Ventricular Angiography EF (%): 57 Wall Motion: Inferior (Normal), Apical (Hypokinetic), Anterior (Hypokinetic) Mitral Regurgitation: None Diagnostic Physician's Name: Gasper Hernandez M.D. Status: Emergency Closure Device Percutaneous Entry Location: Radial Closure Device: Radial Band Recommendations: CABG PCI Indication: Immediate PCI for STEMI First Noted: First EKG Lesion Segment Name: mid LAD Culprit Artery: Yes Stenosis Prior to Rx (%): 99,70,70 Chronic Total Occlusion: No IVUS: No FFR: No Pre-Procedure BREE Flow: 1 Previously Treated Lesion: No Lesion Complexity: High/C Lesion Length (mm): 25 Thrombus Present: Yes Bifurcation Lesion: No Guidewire Across Lesion: Yes Guidewire: Stenosis Post-Procedure (%): 10-20,50,30 Post-Procedure BREE Flow: 3 Device(s) Deployed: No Lesion #2 Segment Name: Proximal LAD Culprit Artery: Yes Stenosis Prior to Rx (%): 80 Chronic Total Occlusion: No IVUS: No FFR: No Pre-Procedure BREE Flow: 1 Previously Treated Lesion: No Lesion Complexity: Non-High/Non-C Lesion Length (mm): 10 Thrombus Present: Yes Bifurcation Lesion: No Guidewire Across Lesion: Yes Guidewire: Stenosis Post-Procedure (%): 20-30 Post-Procedure BREE Flow: 3 Device(s) Deployed: No Intraprocedure Events Significant Dissection: No Perforation: No
[2016-06-30] MEDS ORDERED: POTASSIUM CHLORIDE 10 MEQ TABCR PO STA (01:09)
[2016-06-30 01:28] LABS: MAGNESIUM 2.1 mg/dl (1.8-2.4)
[2016-06-30] MEDS: SODIUM CHLORIDE 0.9% 1000ML 1,000 ML IV SCH ×2 (01:33→09:00)
--- NOTE | 2016-06-30 01:41 | History and Physical ---
History & Physical Date & Time of Service: June 30, 2016 at 01:41 Chief Complaint: Chest Pain Primary Care Physician: Yonis Lane M.D. History of Present Illness Source: patient Ken Matt is a 66-year-old with past medical hx of hyperlipidemia, no prior hx of OK or CAD brought it ED via EMS with complain of chest pain after having dinner EKG : demonstrated ST elevation anteriorly with T-wave changes consistent with an OK. Reciprocal changes were noted in the inferior leads. CODE HEART ALERT was called, pt was taken emergently to [facility] processing lab[facility] , found to have diffuse CAD underwent balloon angioplasty of LAD , admitted to ICU post procedure will need to be transferred to Tertiary center with coronary bypass facility for definitive cardiac intervention Past Medical/Surgical History Medical Problems: (1) High cholesterol Status: Chronic Family History Diabetes mellitus MOTHER FH: [place] (myocardial infarction) MOTHER ( age 72) Stroke GRANDMOTHER Social History Smoking Status: Never Smoker Smokeless Tobacco Use: No Drug Use: none Marital Status: Occupational Status: employed ([employer]) Allergies Coded Allergies: Penicillins (Unverified Allergy, Unknown, UNKNOWN, 06/29/16) Home Medications Scheduled Simvastatin (Zocor), 20 MG PO QPM Tamsulosin HCl (Tamsulosin HCl), 0.4 MG PO HS Review of Systems Respiratory: + shortness of breath Cardiovascular: + chest pain, + orthopnea, + palpitations Physical Exam Vital Signs Date Time Temp Pulse Resp B/P Pulse Ox O2 Delivery O2 Flow Rate FiO2 06/30/16 01:02 68 16 106/64 95 Room Air 06/30/16 00:46 68 13 108/63 94 06/30/16 00:31 69 10 108/63 95 06/30/16 00:16 72 23 112/66 95 Room Air 06/30/16 00:01 75 14 119/60 96 Room Air 06/30/16 00:01 75 14 119/60 96 Room Air 06/29/16 23:59 95 Room Air 06/29/16 23:46 75 24 114/65 97 Room Air 06/29/16 23:45 77 22 110/66 97 Room Air 06/29/16 23:31 76 20 116/72 96 Room Air 06/29/16 23:10 70 16 136/95 95 Room Air 06/29/16 23:00 36.6 79 18 116/72 97 Room Air 06/29/16 23:00 70 16 126/80 95 Room Air 06/29/16 21:51 119/71 06/29/16 21:50 Nasal Cannula 2.0 06/29/16 21:50 69 133/74 99 06/29/16 21:45 64 100 06/29/16 21:41 122/65 06/29/16 21:40 72 100 06/29/16 21:36 115/73 06/29/16 21:36 100 Nasal Cannula 2.0 06/29/16 21:35 67 06/29/16 21:35 67 99 06/29/16 21:34 121/67 06/29/16 21:32 36.5 68 16 115/73 100 Nasal Cannula 2.0 06/29/16 21:32 100 Room Air 2.0 General Appearance: no apparent distress Head: normocephalic, atraumatic Eyes: sclerae normal Neck: supple Respiratory/Chest: chest non-tender, lungs clear, normal breath sounds, no respiratory distress Cardiovascular: regular rate, rhythm Abdomen/GI: normal bowel sounds, non tender, soft Extremities/Musculoskelatal: no pedal edema Neurologic/Psych: alert, normal mood/affect, oriented x 3 Skin: normal color, warm/dry, no rash Diagnostics Laboratory Results Results Past 24 Hours Test 06/29/16 21:37 06/29/16 21:40 06/29/16 21:44 06/29/16 21:45 Range/Units Creatine Kinase MB Ratio 4.4 0-3.0 Bedside Troponin I 0.060 0-0.045 ng/ml Bedside Hemoglobin 13.9 14.0-18.0 g/dl Bedside Hematocrit 41 42-52 % Bedside Sodium 140 135-144 mEq/L Bedside Potassium 3.5 3.3-5.0 mEq/L Bedside Chloride 101 101-112 mEq/L Bedside Total CO2 22 24-31 mEq/l Anion Gap 21.0 9.0 3-11 mmol/L Bedside Blood Urea Nitrogen 23 7-18 mg/dl Bedside Creatinine 1.2 0.6-1.3 mg/dl Bedside Glucose (other) 157 70-99 mg/dl Bedside Ionized Calcium (River) 1.08 1.12-1.32 mmol/l White Blood Count 12.44 4.8-10.8 K/uL Red Blood Count 4.56 4.7-6.1 M/uL Hemoglobin 13.9 14.0-18.0 g/dL Hematocrit 40.9 42-52 % Mean Corpuscular Volume 89.7 80-100 fL Mean Corpuscular Hemoglobin 30.5 25-34 pg Mean Corpuscular Hemoglobin Concent 34.0 32-36 g/dl Platelet Count 190 130-400 K/uL Mean Platelet Volume 10.4 7.4-10.4 fL Neutrophils (%) (Auto) 78.4 % Lymphocytes (%) (Auto) 16.5 % Monocytes (%) (Auto) 3.9 % Eosinophils (%) (Auto) 0.8 % Basophils (%) (Auto) 0.2 % Neutrophils # (Auto) 9.76 1.4-6.5 K/uL Lymphocytes # (Auto) 2.05 1.2-3.4 K/uL Monocytes # (Auto) 0.48 0.11-0.59 K/uL Eosinophils # (Auto) 0.10 0-0.5 K/uL Basophils # (Auto) 0.02 0-0.2 K/uL RDW Standard Deviation 42.3 36.4-46.3 fL RDW Coefficient of Variation 13.0 11.5-14.5 % Immature Granulocyte % (Auto) 0.2 % Immature Granulocyte # (Auto) 0.03 0.00-0.02 K/uL Prothrombin Time 10.1 9.0-12.0 SECONDS Prothromb Time International Ratio 0.9 0.9-1.1 Activated Partial Thromboplast Time 24.6 21.0-31.0 SECONDS Partial Thromboplastin Ratio 0.9 Sodium Level 139 136-145 mmol/L Potassium Level 3.4 3.5-5.1 mmol/L Chloride Level 104 98-107 mmol/L Carbon Dioxide Level 26 21-32 mmol/L Blood Urea Nitrogen 23 7-18 mg/dl Creatinine 1.30 0.60-1.40 mg/dl Est Creatinine Clear Calc Drug Dose 59.3 ml/min Estimated GFR () 66.8 Estimated GFR (Non- 57.7 BUN/Creatinine Ratio 17.5 10-20 Random Glucose 152 70-99 mg/dl Calcium Level 8.9 8.5-10.1 mg/dl Total Bilirubin 0.6 0.2-1 mg/dl Direct Bilirubin 0.1 0-0.2 mg/dl Aspartate Amino Transf (AST/SGOT) 24 15-37 U/L Alanine Aminotransferase (ALT/SGPT) 30 12-78 U/L Alkaline Phosphatase 60 45-117 U/L Total Creatine Kinase 152 39-308 U/L Creatine Kinase MB 6.7 0.5-3.6 ng/ml Total Protein 7.2 6.4-8.2 gm/dl Albumin 3.7 3.4-5.0 gm/dl Lipase 180 73-393 U/L Test 06/29/16 22:26 06/30/16 00:05 Range/Units Kaolin Activated Coagulation Time 420 94-140 SECONDS White Blood Count 11.68 4.8-10.8 K/uL Red Blood Count 4.57 4.7-6.1 M/uL Hemoglobin 13.6 14.0-18.0 g/dL Hematocrit 41.3 42-52 % Mean Corpuscular Volume 90.4 80-100 fL Mean Corpuscular Hemoglobin 29.8 25-34 pg Mean Corpuscular Hemoglobin Concent 32.9 32-36 g/dl Platelet Count 169 130-400 K/uL Mean Platelet Volume 10.2 7.4-10.4 fL Neutrophils (%) (Auto) 87.4 % Lymphocytes (%) (Auto) 9.2 % Monocytes (%) (Auto) 2.8 % Eosinophils (%) (Auto) 0.2 % Basophils (%) (Auto) 0.1 % Neutrophils # (Auto) 10.22 1.4-6.5 K/uL Lymphocytes # (Auto) 1.07 1.2-3.4 K/uL Monocytes # (Auto) 0.33 0.11-0.59 K/uL Eosinophils # (Auto) 0.02 0-0.5 K/uL Basophils # (Auto) 0.01 0-0.2 K/uL RDW Standard Deviation 42.7 36.4-46.3 fL RDW Coefficient of Variation 13.0 11.5-14.5 % Immature Granulocyte % (Auto) 0.3 % Immature Granulocyte # (Auto) 0.03 0.00-0.02 K/uL Sodium Level 142 136-145 mmol/L Potassium Level 4.1 3.5-5.1 mmol/L Chloride Level 107 98-107 mmol/L Carbon Dioxide Level 29 21-32 mmol/L Anion Gap 6.0 3-11 mmol/L Blood Urea Nitrogen 20 7-18 mg/dl Creatinine 1.10 0.60-1.40 mg/dl Est Creatinine Clear Calc Drug Dose 70.1 ml/min Estimated GFR () 81.8 Estimated GFR (Non- 70.6 BUN/Creatinine Ratio 18.5 10-20 Random Glucose 114 70-99 mg/dl Calcium Level 8.1 8.5-10.1 mg/dl Magnesium Level 2.1 1.8-2.4 mg/dl Total Creatine Kinase 218 39-308 U/L Creatine Kinase MB 27.9 0.5-3.6 ng/ml Creatine Kinase MB Ratio 12.8 0-3.0 Troponin I 2.970 0-0.045 ng/ml Triglycerides Level 39 0-150 mg/dl Cholesterol Level 169 0-200 mg/dl HDL Cholesterol 62 mg/dl LDL Cholesterol Direct 101 mg/dl LDL Cholesterol, Calculated mg/dl VLDL Cholesterol, Calculated 8 mg/dl Cholesterol/HDL Ratio 2.7 Microbiology Results 06/29/16 MRSA DNA Surveillance Screen, Received Pending Diagnostic Radiology CHEST ONE VIEW PORTABLE HISTORY: Atypical CHEST PAIN COMPARISON: None. FINDINGS: The lungs are clear. Cardiac silhouette is normal in size. No pleural effusions. No pneumothorax. IMPRESSION: No acute process. Electronically signed by: Javier Black M.D. 06/29/2016 10:09 PM Dictated Date/Time: 06/29/2016 10:09 PM Impression Assessment and Plan STEMI / Acute anterior myocardial infarction pt presented with chest pain EKG showed ST elevation in ant lead , reciprocal changed in inf lead -CODE HEART ALERT was called pt was taken to [facility] emergently -underwent cardiac cath by Dr Hernandez by Right radial approach 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 Hernandez D/w Dr Hernandez pt will need continue Integrilin gtt will need to be transferred to [place] in AM for CABG pt remains pain free cont to monitor in ICU started on Cardiac meds : * Lopressor 25 mg every 12 * Aspirin 81 mg qAM PO * Lisinopril 5 mg qAM PO * Atorvastatin 80 mg qAM PO * EKG in AM and with recurrent Chest Pain * ECHO ordered to assess Wall motion abnormality [facility] consulted HYPERLIPIDEMIA: cont High intensity statin dose -atorvastatin 80 mg daily for post [place] protocol FULL CODE DISPOSITION ; pt will need to be transferred to [facility] in AM for evaluation for CABG Level of Care Critical Care Advanced Directives Existing Living Will: No Existing Power of Veneer Taping Machine Offbearer: No Resuscitation Status FULL RESUSCITATION VTE Prophylaxis VTE Risk Assessment Done? Y/N: Yes Risk Level: Moderate Additional Copies To Yonis Lane M.D.
--- NOTE | 2016-06-30 04:27 | CARDIOLOGY CONSULTATION ---
DATE OF CONSULTATION: 06/29/2016 REFERRING PHYSICIAN: Gareth Oropeza MD. CONSULTATION BY: Gasper Hernandez MD. PRIMARY PHYSICIAN: Yonis Lane MD. ATTENDING PHYSICIAN: Shelbi Espinoza MD. HISTORY OF PRESENT ILLNESS: The patient is a 66-year-old white male. No prior history of coronary artery disease. He has dyslipidemia and benign prostatic hypertrophy. No history of hypertension or diabetes mellitus. He is a nonsmoker. No family history of premature coronary artery disease. He was in his normal state of health until the evening of June 29. 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 This was constant. He had associated nausea, weakness, lightheadedness, and diaphoresis. Mild associated dyspnea. He was brought to the Emergency Department by emergency medical services. An electrocardiogram performed by emergency medical services revealed evidence of an acute anterior myocardial infarction. Based on this electrocardiogram, a heart alert was called. He received aspirin, sublingual nitroglycerin, and morphine by EMS. On arrival to the Emergency Department, he was promptly evaluated by Dr. Oropeza. His chest pain intensity had decreased compared to that at home. He was then evaluated by me. He was only complaining of mild chest discomfort at the time of my evaluation. He states that prior to the onset of the chest discomfort on the evening of June 29, he had not been experiencing any recent chest pain or other anginal symptoms. His exercise tolerance had been stable. He had no dyspnea at rest or with his usual activities. No orthopnea, PND, palpitations, lightheadedness, syncope, or peripheral edema. He denied any GI complaints other than the nausea associated with the chest discomfort this evening. In the Emergency Department, he also had an episode of vomiting. He denies any symptoms of GI bleeding. No other bleeding complaints. No cerebrovascular or peripheral vascular complaints. No pulmonary complaints. He does have been benign prostatic hypertrophy for which he takes tamsulosin 0.4 mg at bedtime. The patient was brought emergently to the cardiac catheterization lab following my evaluation of him in the Emergency Department. Cardiac catheterization was performed via a 6-Peruvian sheath in the right radial artery. This revealed a 75% ostial LAD stenosis. This appeared to be stable stenosis. The proximal LAD had an 80% stenosis. The mid LAD had a subtotal 99% stenosis. There is evidence of thrombus at the site of the proximal stenosis as well as in the mid LAD. A PTCA was performed to the proximal and mid LAD with a 2.5 mm diameter balloon. Following balloon angioplasty, BREE 3 flow was present in the LAD. There was no evidence of dissection, thrombus, perforation, or distal embolic event. He had resolution of his chest pain following reperfusion of the LAD. No significant arrhythmias. He was hemodynamically stable. The residual stenosis in the proximal LAD was 20-30%. The residual stenoses in the mid LAD were 10-20%, 50%, and 30%. There was a bifurcation stenosis in the mid left circumflex where it gave rise to the first marginal artery. The bifurcation stenosis was approximately 75%. This involved the mid circumflex and the ostium of the marginal. Following this bifurcation stenosis, the mid circumflex had a possible ulcerated plaque. The mid RCA had a discrete and the eccentric 75% stenosis. Left ventricular angiography following PCI revealed anterolateral and apical hypokinesis. The other LV segments contracted normally. Calculated LV ejection fraction was 57%. No mitral regurgitation. Hemostasis was obtained at the right radial catheterization site with application of a Terumo TR band. Only plain balloon angioplasty was performed to the LAD. PAST MEDICAL HISTORY: 1. Dyslipidemia. 2. BPH. PAST SURGICAL HISTORY: Status post appendectomy at age 19. FAMILY HISTORY: He denies family history of coronary artery disease. SOCIAL HISTORY: The patient is and lives with his . 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 He does not smoke cigarettes. He does not drink alcohol. ALLERGIES AND ADVERSE DRUG REACTIONS: PENICILLIN. MEDICATIONS: At time of admission was simvastatin 20 mg at bedtime and tamsulosin 0.4 mg at bedtime. PHYSICAL EXAMINATION: VITAL SIGNS: On arrival to the Emergency Department, pulse was 68, blood pressure 115/73, pulse oximetry 100% on 2 liters from a nasal cannula oxygen. Oral temperature is 36.5. GENERAL APPEARANCE: Showed him to be in no significant distress. HEAD: Normal. EYES: Pupils equal and round. Anicteric. Conjunctivae normal. No xanthelasma. NECK: No jugular venous distension. Carotids 2/2 bilaterally. Normal upstroke. No bruits. LUNGS: Normal respiratory effort. Clear. No rales or wheezes. HEART: Regular rate and rhythm. S1, S2 normal. No S3 or S4. No murmur or rub. ABDOMEN: Soft. Nontender. No palpable masses or organomegaly. No bruits. Normal bowel sounds. EXTREMITIES: No pretibial edema. No cyanosis or clubbing. PULSES: Distal pulses in all extremities strongly palpable. NEUROLOGICAL: Alert and oriented x3. Motor is grossly intact. PSYCHIATRIC: Affect is normal. DIAGNOSTIC DATA: Electrocardiogram performed by EMS revealed acute anterior myocardial infarction. Chest x-ray without evidence of congestive heart failure or infiltrate. LABORATORY DATA: Revealed WBC 12.44, hemoglobin 13.9, hematocrit 40.9, platelet count 190. INR 0.9, PTT 24.6. Metabolic profile: Sodium 139, potassium 3.4, chloride 104, carbon dioxide 26, BUN 23, creatinine 1.30. Random glucose 152. AST 24. ALT 30. Initial CK 152 with MB of 6.7. Point of care troponin I was 0.060. ASSESSMENT: 1. Status post acute anterior myocardial infarction secondary to severe proximal mid left anterior descending stenoses. There is associated thrombus at the sites. Successful plain balloon angioplasty to the proximal and mid left anterior descending. 2. Three-vessel coronary artery disease. Ostial left anterior descending stenosis. The bifurcation stenosis in the mid circumflex. Stenosis in the mid right coronary artery. 3. Resolution of chest pain following successful reperfusion of the left anterior descending. 4. Good overall left ventricular systolic function. No evidence of congestive heart failure on exam or chest x-ray. 5. Only obvious coronary artery disease risk factor is dyslipidemia. No history of hypertension or diabetes mellitus. No smoking history. No family history of premature coronary artery disease. PLAN: 1. It was decided to perform only plain balloon angioplasty to the LAD. It was felt that the patient should be referred for CABG surgery. This is in light of his 3-vessel coronary artery disease and the morphology of his ostial LAD stenosis and mid left circumflex stenosis. Although these lesions could be treated with coronary stents, they would be at the increased risk. He has evidence of plaque at the ostium of the left circumflex. Intervention to the ostium of the LAD could cause plaque shift in to the left circumflex. This felt best not to deploy stents in the proximal and mid LAD as this would have required an extensive length of stents. This could possibly have hampered placement of a bypass graft in the future. 2. Continue intravenous Integrilin. 3. Intravenous heparin once hemostasis has been adequately obtained to the right radial catheterization site. 4. Continue aspirin. 5. Start beta jorden and RUPESH inhibitor therapy. 6. Change his statin to high intensity statin with atorvastatin 80 mg daily. 7. Echocardiogram to further assess LV systolic function. 8. Serial electrocardiograms and labs. 9. Potassium supplementation for his borderline low potassium level. 10. Check serum magnesium level in light of the low potassium level.
[2016-06-30] MEDS: EPTIFIBATIDE INJ 75 MG PREMIXED IV SCH ×3 (04:30→15:36)
[2016-06-30 05:59] LABS: ESTIMATED AVERAGE GLUCOSE 111 mg/dl; HA1C FLAG Normal (Normal)
[2016-06-30 06:16] LABS: BASO % 0.1 %; BASO ABS # 0.01 K/uL (0-0.2); COMPLETE YES; EOS % 0.2 %; HEMATOCRIT 39.9 % (42-52); IG% 0.4 %; LYMPH % 13.7 %; LYMPH ABS # 1.26 K/uL (1.2-3.4); MEAN CELL VOLUME 91.7 fL (80-100); MEAN CORPUSCULAR HEMOGLOBIN 30.1 pg (25-34); MEAN CORPUSCULAR HGB CONC 32.8 g/dl (32-36); MEAN PLATELET VOLUME 10.7 fL (7.4-10.4); MONO % 5.3 %; NEUT % 80.3 %; PLATELET COUNT 166 K/uL (130-400); RED BLOOD COUNT 4.35 M/uL (4.7-6.1); WHITE BLOOD COUNT 9.17 K/uL (4.8-10.8)
[2016-06-30 06:23] LABS: CALCIUM 7.8 mg/dl (8.5-10.1); CREATININE 0.94 mg/dl (0.60-1.40); POTASSIUM 4.4 mmol/L (3.5-5.1)
[2016-06-30] MEDS ORDERED: METOPROLOL TARTRATE 25 MG TAB PO SCH (09:00)
[2016-06-30] MEDS ORDERED: ASPIRIN 81 MG ECTAB PO SCH (09:00)
[2016-06-30] MEDS ORDERED: PANTOprazole SOD 40 MG TAB PO SCH (09:00)
[2016-06-30] MEDS ORDERED: LISINOPRIL 5 MG TAB PO SCH (09:00)
[2016-06-30] MEDS ORDERED: ATORVASTATIN 40 MG TAB PO SCH (09:00)
[2016-06-30 09:23] LABS: CKMB/CK RATIO 20.9 (0-3.0)
--- NOTE | 2016-06-30 11:41 | ECHOCARDIOGRAM REPORT ---
*NOTICE TO RECEIVING [employer] This information is strictly Confidential and protected under [place] law. [place] law prohibits you from making any further disclosure of this information unless further disclosure is expressly permitted by the written consent of the person to whom it pertains or is authorized by law. A general authorization for the release of medical or other information is not sufficient for this purpose. Hospital accepts no responsibility if the information is made available to any other person, INCLUDING THE PATIENT. Interpretation Summary * Name: ARNOLD MARTIN Study Date: 06/30/2016 07:00 AM BP: 113/66 mmHg * Patient Location: .MSICU\S\E104\S\1 HR: 65 * : 1950 (M/d/yyy) Gender: Male Height: 70 in * Age: 66 yrs Ethnicity: CA Weight: 188 lb * Ordering Physician: Gasper Hernandez * Referring Physician: Self, Referred * Performed By: Anusha Booth RDCS * * Reason For Study: AMI * BSA: 2.0 m2 * -- Conclusions -- * Normal LV chamber size and wall thickness. * Mildly reduced LV systolic function, EF 45-50%. * Moderate to severe hypokinesis of the mid to apical segments of the anterior/anteroseptal wan along with the apcial cap. * Grade II diastolic dysfunction. * No significant valvular pathology. Procedure Details * A complete two-dimensional transthoracic echocardiogram was performed (2D, M-mode, Doppler and color flow Doppler). * A contrast injection of Definity was performed to improve assessment of LV function. * Contrast was injected into an intravenous site in the right arm. * One vial of Definity ultrasound contrast was diluted in normal saline to a total volume of 10 ml. A total of '2' ml of solution was administered during imaging. * Lot # [id number] of Definity utilized for procedure. * Expiration date JUL 25. * The attending nurse who injected the contrast agent was Nitish Tinoco RN. Left Ventricle * The left ventricle is normal in size. * There is normal left ventricular wall thickness. * Ejection Fraction = 45-50%. * Left ventricular systolic function is mildly reduced. * Moderate to severe hypokinesis of the mid to apical segments of the anterior/anteroseptal wan along with the apcial cap. Right Ventricle * The right ventricular cavity size is normal (basal dimension <4.2 cm in right ventricular apical 4-chamber view). * The right ventricular systolic function is normal as assessed by tricuspid annular plane systolic excursion (TAPSE) (normal >1.5 cm). Atria * The left atrial size is normal. * Right atrial size is normal. * No ASD detected; PFO is not assessed. * The interatrial septum bows toward right atrium consistent with elevated left atrial pressure. Mitral Valve * The mitral valve is normal in structure and function. Tricuspid Valve * The tricuspid valve is normal in structure and function. Aortic Valve * The aortic valve is normal in structure and function. Pulmonic Valve * The pulmonary valve is not well seen, but the Doppler examination is normal without significant regurgitation or stenosis. Great Vessels * The aortic root and proximal ascending aorta are normal sized. Pericardium/Pleural * There is no pericardial effusion. Left Ventricular Diastolic Function * Diastolic dysfunction, Grade II (pseudonormalization pattern). MMode 2D Measurements and Calculations IVSd 0.79 cm LVIDd 4.1 cm LVIDs 2.3 cm LVPWd 0.89 cm IVS/LVPW 0.89 FS 44.2 % EDV(Teich) 72.8 ml ESV(Teich) 17.5 ml EF(Teich) 76.0 % EDV(cubed) 67.2 ml ESV(cubed) 11.7 ml EF(cubed) 82.6 % LV mass(C)d 102.8 grams LV mass(C)dI 50.6 grams/m\S\2 CO(Teich) 3.4 l/min CI(Teich) 1.7 l/min/m\S\2 SV(Teich) 55.3 ml SI(Teich) 27.2 ml/m\S\2 CO(cubed) 3.4 l/min CI(cubed) 1.7 l/min/m\S\2 SV(cubed) 55.6 ml SI(cubed) 27.3 ml/m\S\2 Ao root diam 3.6 cm Ao root area 10.1 cm\S\2 ACS 1.8 cm LA dimension 2.9 cm asc Aorta Diam 3.2 cm LA/Ao 0.80 LVAd ap4 37.2 cm\S\2 LVLd ap4 8.5 cm EDV(MOD-sp4) 133.0 ml LVAs ap4 24.3 cm\S\2 LVLs ap4 7.2 cm ESV(MOD-sp4) 66.0 ml EF(MOD-sp4) 50.4 % LVAd ap2 36.5 cm\S\2 LVLd ap2 8.3 cm EDV(MOD-sp2) 131.0 ml LVAs ap2 24.2 cm\S\2 LVLs ap2 7.4 cm ESV(MOD-sp2) 63.2 ml EF(MOD-sp2) 51.8 % CO(MOD-sp4) 4.1 l/min CI(MOD-sp4) 2.0 l/min/m\S\2 SV(MOD-sp4) 67.0 ml SI(MOD-sp4) 33.0 ml/m\S\2 CO(MOD-sp2) 4.1 l/min CI(MOD-sp2) 2.0 l/min/m\S\2 SV(MOD-sp2) 67.8 ml SI(MOD-sp2) 33.3 ml/m\S\2 Doppler Measurements and Calculations MV E max alina 98.5 cm/sec MV A max alina 82.9 cm/sec MV E/A 1.2 MV dec time 0.20 sec Ao V2 max 104.4 cm/sec Ao max PG 4.4 mmHg Ao max PG (full) 1.9 mmHg LV V1 max PG 2.5 mmHg LV V1 max 79.1 cm/sec PA V2 max 92.3 cm/sec PA max PG 3.4 mmHg PA acc slope 528.1 cm/sec\S\2 PA acc time 0.11 sec PI max alina 181.9 cm/sec PI max PG 13.2 mmHg PI dec slope 113.8 cm/sec\S\2 PI P1/2t 468.1 msec TR max alina 285.6 cm/sec PA pr(Accel) 31.5 mmHg
--- NOTE | 2016-06-30 11:45 | Critical Care Progress Note ---
Critical Care Progress Note Date of Service June 30, 2016. ICU Day ICU Day Number: [address] Castellon Subjective No complaints s/p cardiac catheterizationw without stenting No chest pain, palpitations, SOB, Diaphoresis, orthopnea Awaiting transfer to [facility] Objective Constitutional: Vital signs as above were reviewed. Eyes: Pupils equal, round, and reactive to light. Extraocular muscles are intact. No proptosis. No photophobia. ENT: Mucous membranes are moist. Oropharynx is clear. No sinus tenderness. TMs are clear bilaterally. Cardiovascular: Heart with a regular rate and rhythm. Pulses are palpable and symmetric in all 4 extremities. No pedal edema appreciated. Respiratory: Lungs clear to auscultation bilaterally. No wheezes, rales, or rhonchi appreciated. No accessory muscle use. No retractions. No increased work of breathing. GI: Abdomen soft, nontender, nondistended. Normal active bowel sounds. No abdominal hernias appreciated. No rebound. No guarding. : No CVA tenderness appreciated. Musculoskeletal: No midline cervical or vertebral tenderness. No gross deformities. No bony tenderness. No calf swelling or tenderness. Integumentary: Warm, dry, no rashes appreciated. Neurological: Patient awake, alert, and oriented x 3. Cranial nerves two through 12 grossly intact. Motor 5 out of 5 strength bilateral upper and lower extremities. Lymph: No cervical lymphadenopathy appreciated. Current SOFA Score SOFA Score Response (Comments) Value Platelets (x10) > 150 0 Bilirubin (mg/dL) < 1.2 0 Emeka Coma Score 15 0 Level of Hypotension No Hypotension 0 Creatinine (mg/dL) < 1.2 0 Total 0 Assessment & Plan (1) S/P cardiac catheterization (2) Acute anterior myocardial infarction (3) BPH (benign prostatic hyperplasia) NEUROLOGICAL - GCS 15; CAM-ICU negative; RASS 0 - No pain currently Has PRN for Tylenol, Morphine CARDIOVASCULAR - BP: 100/60-70; maintaining MAP 70-80 - Vasopressor support: None STEMI s/p catheterization - s/p cardiac catheterization; refer to full report Had baloon angioplasty to Mid and Proximal LAD; multivessel disease - Requires transfer to [facility] [place] - Currently has integrillin infusion - Troponin currently at 18; trend until peak - Secondary medications initiated ASA, Atorvastatin, Lisinopril and Metoprolol RESPIRATORY - RR: 11-15, SpO2: 95% on RA - Non-smoker - Otherwise stable GASTROINTESTINAL - Diet: Clear liquid diet until transport - GI Prophylaxis: Protonix RENAL//ENDOCRINE - Monitor daily and cumulative fluid balance - Cr: 0.94 - Electrolytes: Stable - IV Fluids: Integrilin infusion HEMATOLOGY/INFECTIOUS DISEASE - Tmax: Afebrile, WBC 9 - Hb/Hct 13/39 respectively DVT Prophylaxis: Integrilin infusion LINES/IV ACCESS - Right 20 G forearm - Left 18 G forearm CODE STATUS - Full Code DISPOSITION - OT/PT: Deferred as patient anticipated to be transferred - ICU until transportation arranged Resident Physician Supervision Note: Dr. Lainez was resident physician during care of patient. I separately evaluated patient and did history and exam. I discussed the case with the resident and generally agree with the findings and plan. Asymptomatic, stable for transfer Documented By: Gareth Castellon DO Consults & Procedures Consultants: Cardiology Procedures: s/p cardiac catheterization on 06/30 with toney angioplasty Data Medications: Current Inpatient Medications Medications (Trade) Dose Ordered Sig/Lou Route Start Time Stop Time Status Last Admin Dose Admin Nitroglycerin (Nitrostat Tab) 0.4 mg UD PRN SL 06/29/16 23:45 07/29/16 23:44 Atropine Sulfate (Atropine Sulfate 0.1MG/Ml Inj) 0.5 mg ONE PRN IV 06/29/16 23:45 07/29/16 23:44 Ondansetron HCl (Zofran Inj) 4 mg Q6H PRN IV 06/29/16 23:45 07/29/16 23:44 Aspirin (Ecotrin Tab) 81 mg QAM PO 06/30/16 09:00 07/30/16 08:59 06/30/16 08:58 81 MG Atorvastatin Calcium (Lipitor Tab) 80 mg QAM PO 06/30/16 09:00 07/30/16 08:59 06/30/16 08:58 80 MG Metoprolol Tartrate (Lopressor Tab) 25 mg Q12 PO 06/30/16 09:00 07/30/16 08:59 06/30/16 08:58 25 MG Lisinopril (Zestril Tab) 5 mg QAM PO 06/30/16 09:00 07/30/16 08:59 06/30/16 08:58 5 MG Acetaminophen (Tylenol Tab) 650 mg Q4H PRN PO 06/29/16 23:45 07/29/16 23:44 Morphine Sulfate 2 mg 2 mg Q5M PRN IV 06/29/16 23:45 07/13/16 23:44 Lorazepam/Syringe (Ativan Inj/ Syringe) 0.25 ml @ 1 mls/min Q6H PRN IV 06/29/16 23:45 07/29/16 23:44 Al Hydrox/Mg Hydrox/Simethicone (Maalox Max Susp) 15 ml Q4H PRN PO 06/29/16 23:45 07/29/16 23:44 Magnesium Hydroxide (Milk Of Magnesia Susp) 30 ml Q12H PRN PO 06/29/16 23:45 07/29/16 23:44 Pantoprazole Sodium 40 mg 40 mg DAILY PO 06/30/16 09:00 07/30/16 08:59 06/30/16 08:59 40 MG Eptifibatide 100 ml @ 13.3 mls/hr Q7H32M IV 06/30/16 01:15 07/30/16 01:14 06/30/16 09:00 13.3 MLS/HR Sodium Chloride (Nss 1000ml) 1,000 ml @ 125 mls/hr Q8H IV 06/30/16 01:09 07/30/16 01:08 06/30/16 09:00 125 MLS/HR I & O: 24-Hour Column 06/30/16 08:00 Intake Total 1065 ml Output Total 600 ml Balance 465 ml Vital Signs: Date Time Temp Pulse Resp B/P Pulse Ox O2 Delivery O2 Flow Rate FiO2 06/30/16 10:05 54 14 110/70 100 Room Air 06/30/16 08:00 36.5 59 16 132/69 97 Room Air 06/30/16 08:00 97 Room Air 06/30/16 06:00 63 13 101/61 97 Room Air 06/30/16 05:31 65 17 113/66 96 06/30/16 05:16 60 14 94/60 97 06/30/16 05:01 60 13 113/70 96 06/30/16 04:46 57 11 103/63 97 06/30/16 04:31 57 11 105/64 96 06/30/16 04:16 61 16 103/66 95 06/30/16 04:12 63 11 103/66 97 Room Air 06/30/16 04:01 36.6 64 14 108/67 97 Room Air 06/30/16 04:00 97 Room Air 06/30/16 03:46 55 12 100/63 95 06/30/16 03:31 56 12 99/63 94 06/30/16 03:16 57 12 98/63 95 06/30/16 03:01 60 15 111/64 97 06/30/16 02:46 60 9 102/61 94 06/30/16 02:31 61 11 106/64 94 06/30/16 02:16 59 11 108/64 94 06/30/16 02:01 59 8 112/63 97 Room Air 06/30/16 02:00 63 12 112/63 95 Room Air 06/30/16 01:46 64 11 113/66 99 06/30/16 01:32 83 21 126/70 98 06/30/16 01:16 68 15 111/63 93 06/30/16 01:02 68 16 106/64 95 Room Air 06/30/16 01:01 67 15 106/64 93 06/30/16 00:46 68 13 108/63 94 06/30/16 00:46 68 13 108/63 94 06/30/16 00:31 69 10 108/63 95 06/30/16 00:31 69 10 108/63 95 06/30/16 00:30 69 12 95 06/30/16 00:16 72 23 112/66 95 Room Air 06/30/16 00:16 72 23 112/66 95 06/30/16 00:15 72 16 97 06/30/16 00:01 75 14 119/60 96 06/30/16 00:01 75 14 119/60 96 Room Air 06/30/16 00:01 75 14 119/60 96 Room Air 06/30/16 00:00 78 18 98 06/29/16 23:59 95 Room Air 06/29/16 23:46 75 24 114/65 97 Room Air 06/29/16 23:45 77 22 110/66 97 Room Air 06/29/16 23:31 76 20 116/72 96 Room Air 06/29/16 23:10 70 16 136/95 95 Room Air 06/29/16 23:00 36.6 79 18 116/72 97 Room Air 06/29/16 23:00 70 16 126/80 95 Room Air 06/29/16 21:51 119/71 06/29/16 21:50 Nasal Cannula 2.0 06/29/16 21:50 69 133/74 99 06/29/16 21:45 64 100 06/29/16 21:41 122/65 06/29/16 21:40 72 100 06/29/16 21:36 115/73 06/29/16 21:36 100 Nasal Cannula 2.0 06/29/16 21:35 67 06/29/16 21:35 67 99 06/29/16 21:34 121/67 06/29/16 21:32 36.5 68 16 115/73 100 Nasal Cannula 2.0 06/29/16 21:32 100 Room Air 2.0 Laboratory Results: Last 24 Hours Test 06/29/16 21:37 06/29/16 21:40 06/29/16 21:44 06/29/16 21:45 Creatine Kinase MB Ratio 4.4 Bedside Troponin I 0.060 ng/ml Bedside Hemoglobin 13.9 g/dl Bedside Hematocrit 41 % Bedside Sodium 140 mEq/L Bedside Potassium 3.5 mEq/L Bedside Chloride 101 mEq/L Bedside Total CO2 22 mEq/l Anion Gap 21.0 mmol/L 9.0 mmol/L Bedside Blood Urea Nitrogen 23 mg/dl Bedside Creatinine 1.2 mg/dl Bedside Glucose (other) 157 mg/dl Bedside Ionized Calcium (River) 1.08 mmol/l White Blood Count 12.44 K/uL Red Blood Count 4.56 M/uL Hemoglobin 13.9 g/dL Hematocrit 40.9 % Mean Corpuscular Volume 89.7 fL Mean Corpuscular Hemoglobin 30.5 pg Mean Corpuscular Hemoglobin Concent 34.0 g/dl Platelet Count 190 K/uL Mean Platelet Volume 10.4 fL Neutrophils (%) (Auto) 78.4 % Lymphocytes (%) (Auto) 16.5 % Monocytes (%) (Auto) 3.9 % Eosinophils (%) (Auto) 0.8 % Basophils (%) (Auto) 0.2 % Neutrophils # (Auto) 9.76 K/uL Lymphocytes # (Auto) 2.05 K/uL Monocytes # (Auto) 0.48 K/uL Eosinophils # (Auto) 0.10 K/uL Basophils # (Auto) 0.02 K/uL RDW Standard Deviation 42.3 fL RDW Coefficient of Variation 13.0 % Immature Granulocyte % (Auto) 0.2 % Immature Granulocyte # (Auto) 0.03 K/uL Prothrombin Time 10.1 SECONDS Prothromb Time International Ratio 0.9 Activated Partial Thromboplast Time 24.6 SECONDS Partial Thromboplastin Ratio 0.9 Sodium Level 139 mmol/L Potassium Level 3.4 mmol/L Chloride Level 104 mmol/L Carbon Dioxide Level 26 mmol/L Blood Urea Nitrogen 23 mg/dl Creatinine 1.30 mg/dl Est Creatinine Clear Calc Drug Dose 59.3 ml/min Estimated GFR () 66.8 Estimated GFR (Non- 57.7 BUN/Creatinine Ratio 17.5 Random Glucose 152 mg/dl Calcium Level 8.9 mg/dl Total Bilirubin 0.6 mg/dl Direct Bilirubin 0.1 mg/dl Aspartate Amino Transf (AST/SGOT) 24 U/L Alanine Aminotransferase (ALT/SGPT) 30 U/L Alkaline Phosphatase 60 U/L Total Creatine Kinase 152 U/L Creatine Kinase MB 6.7 ng/ml Total Protein 7.2 gm/dl Albumin 3.7 gm/dl Lipase 180 U/L Test 06/29/16 22:26 06/30/16 00:05 06/30/16 05:40 06/30/16 08:46 Kaolin Activated Coagulation Time 420 SECONDS White Blood Count 11.68 K/uL 9.17 K/uL Red Blood Count 4.57 M/uL 4.35 M/uL Hemoglobin 13.6 g/dL 13.1 g/dL Hematocrit 41.3 % 39.9 % Mean Corpuscular Volume 90.4 fL 91.7 fL Mean Corpuscular Hemoglobin 29.8 pg 30.1 pg Mean Corpuscular Hemoglobin Concent 32.9 g/dl 32.8 g/dl Platelet Count 169 K/uL 166 K/uL Mean Platelet Volume 10.2 fL 10.7 fL Neutrophils (%) (Auto) 87.4 % 80.3 % Lymphocytes (%) (Auto) 9.2 % 13.7 % Monocytes (%) (Auto) 2.8 % 5.3 % Eosinophils (%) (Auto) 0.2 % 0.2 % Basophils (%) (Auto) 0.1 % 0.1 % Neutrophils # (Auto) 10.22 K/uL 7.35 K/uL Lymphocytes # (Auto) 1.07 K/uL 1.26 K/uL Monocytes # (Auto) 0.33 K/uL 0.49 K/uL Eosinophils # (Auto) 0.02 K/uL 0.02 K/uL Basophils # (Auto) 0.01 K/uL 0.01 K/uL RDW Standard Deviation 42.7 fL 44.2 fL RDW Coefficient of Variation 13.0 % 13.2 % Immature Granulocyte % (Auto) 0.3 % 0.4 % Immature Granulocyte # (Auto) 0.03 K/uL 0.04 K/uL Sodium Level 142 mmol/L 141 mmol/L Potassium Level 4.1 mmol/L 4.4 mmol/L Chloride Level 107 mmol/L 109 mmol/L Carbon Dioxide Level 29 mmol/L 28 mmol/L Anion Gap 6.0 mmol/L 4.0 mmol/L Blood Urea Nitrogen 20 mg/dl 20 mg/dl Creatinine 1.10 mg/dl 0.94 mg/dl Est Creatinine Clear Calc Drug Dose 70.1 ml/min 82.0 ml/min Estimated GFR () 81.8 98.9 Estimated GFR (Non- 70.6 85.3 BUN/Creatinine Ratio 18.5 21.0 Random Glucose 114 mg/dl 114 mg/dl Calcium Level 8.1 mg/dl 7.8 mg/dl Magnesium Level 2.1 mg/dl Total Creatine Kinase 218 U/L 444 U/L Creatine Kinase MB 27.9 ng/ml 92.9 ng/ml Creatine Kinase MB Ratio 12.8 20.9 Troponin I 2.970 ng/ml 18.900 ng/ml Triglycerides Level 39 mg/dl Cholesterol Level 169 mg/dl HDL Cholesterol 62 mg/dl LDL Cholesterol Direct 101 mg/dl LDL Cholesterol, Calculated mg/dl VLDL Cholesterol, Calculated 8 mg/dl Cholesterol/HDL Ratio 2.7 Hepatitis C Antibody Screen NEG
--- NOTE | 2016-06-30 12:31 | Progress Note ---
Progress Note Date of Service June 30, 2016. Progress Note In order to help facilitate patient transfer to CT surgery stephanie I spoke with [facility] knowledge analyst on service, Dr. Barrios, case reviewed and patient accepted for transfer. Will be transported via ground. Unfortunately, no beds available at this time. Will transfer once bed available.
--- NOTE | 2016-06-30 12:40 | Discharge Instructions ---
Discharge Instructions Date of Service June 30, 2016. Admission Reason for Admission: Chest Pain Discharge Discharge Diagnosis / Problem: stemi Discharge Goals Goal(s): Decrease discomfort, Improve function Activity Recommendations Activity Level: Bedrest . Additional Information Patient informed of condition: Yes Advance Directives: Yes DNR: No Level of Care: Other (ACUTE CARE FACILITY. [place]) Communicable Disease: No Prognosis: Stable Cannon Catheter: No Instructions / Follow-Up Instructions / Follow-Up FOLLOWUP RECOMMENDED PLEASE CHECK MEDICATION RECONCILIATION FOR ACCURATE MEDICATIONS. Current Hospital Diet Patient's current hospital diet: AHA Diet (Heart Healthy), Clear Liquid Diet Discharge Diet Recommended Diet: AHA Diet (Heart Healthy) Pending Studies Studies pending at discharge: no Physician Orders On Transfer IV Therapy: IV INTEGRILIN PER PROTOCOL IV FLUIDS Vital Signs: EVERY 8HRS Additional Orders: PLEASE CHECK MEDICATION RECONCILIATION FOR ACCURATE MEDICATIONS. Laboratory Results Hemoglobin A1c Test 06/29/16 00:05 Range/Units Estimated Average Glucose 111 mg/dl Hemoglobin A1c 5.5 4.5-5.6 % Lipid Panel Test 06/30/16 00:05 Range/Units Triglycerides Level 39 0-150 mg/dl Cholesterol Level 169 0-200 mg/dl HDL Cholesterol 62 mg/dl LDL Cholesterol Direct 101 mg/dl Cholesterol/HDL Ratio 2.7 LDL Cholesterol, Calculated mg/dl Medical Emergencies . Who to Call and When: Medical Emergencies: If at any time you feel your situation is an emergency, please call 911 immediately. . Non-Emergent Contact Non-Emergency issues call your: Primary Care Provider . . "Provider Documentation" section prepared by Hector Breen. . Core Measure Problem Core Measures: None AMI Core Measures Reason no ASA as I/P: Treatment provided - N/A Reason no statin as I/P: Treatment provided - N/A
--- NOTE | 2016-06-30 15:48 | Progress Note ---
Internal Med Progress Note Date of Service: June 30, 2016. Provider Documentation: SUBJECTIVE: s/p cardiac cath currently no chest pain or sob afebrile no nausea awaiting [facility] transfer OBJECTIVE: Vital Signs-as noted below Exam: General-alert and awake and oriented x 3 ENT-normal hearing Neck-no neck masses Lungs-cta b/l no wheezing or crackles Heart-s1 and s2 heard regular rate and rhythm no murmurs Abdomen-soft bowel sounds present non tender no distension Extremities- no edema present no erythema Neuro-alert and awake oriented x 3 moves extremities Lab data as noted below. 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 Hernandez CABG recommended and plan to transfer to [facility] started on Lopressor, aspirin, high dose statin and lisinopril stable currently HYPERLIPIDEMIA: High intensity statin dose -atorvastatin 80 mg daily started as per post [place] protocol Transfer to [facility] Vital Signs: Date Time Temp Pulse Resp B/P Pulse Ox O2 Delivery O2 Flow Rate FiO2 06/30/16 15:26 Room Air 06/30/16 15:26 37.0 55 16 99/60 95 Room Air 06/30/16 14:00 47 15 94/58 95 06/30/16 12:00 52 13 110/65 98 Room Air 06/30/16 12:00 97 Room Air 06/30/16 10:05 54 14 110/70 100 Room Air 06/30/16 08:00 36.5 59 16 132/69 97 Room Air 06/30/16 08:00 97 Room Air 06/30/16 06:00 63 13 101/61 97 Room Air 06/30/16 05:31 65 17 113/66 96 06/30/16 05:16 60 14 94/60 97 06/30/16 05:01 60 13 113/70 96 06/30/16 04:46 57 11 103/63 97 06/30/16 04:31 57 11 105/64 96 06/30/16 04:16 61 16 103/66 95 06/30/16 04:12 63 11 103/66 97 Room Air 06/30/16 04:01 36.6 64 14 108/67 97 Room Air 06/30/16 04:00 97 Room Air 06/30/16 03:46 55 12 100/63 95 06/30/16 03:31 56 12 99/63 94 06/30/16 03:16 57 12 98/63 95 06/30/16 03:01 60 15 111/64 97 06/30/16 02:46 60 9 102/61 94 06/30/16 02:31 61 11 106/64 94 06/30/16 02:16 59 11 108/64 94 06/30/16 02:01 59 8 112/63 97 Room Air 06/30/16 02:00 63 12 112/63 95 Room Air 06/30/16 01:46 64 11 113/66 99 06/30/16 01:32 83 21 126/70 98 06/30/16 01:16 68 15 111/63 93 06/30/16 01:02 68 16 106/64 95 Room Air 06/30/16 01:01 67 15 106/64 93 06/30/16 00:46 68 13 108/63 94 06/30/16 00:46 68 13 108/63 94 06/30/16 00:31 69 10 108/63 95 06/30/16 00:31 69 10 108/63 95 06/30/16 00:30 69 12 95 06/30/16 00:16 72 23 112/66 95 Room Air 06/30/16 00:16 72 23 112/66 95 06/30/16 00:15 72 16 97 06/30/16 00:01 75 14 119/60 96 06/30/16 00:01 75 14 119/60 96 Room Air 06/30/16 00:01 75 14 119/60 96 Room Air 06/30/16 00:00 78 18 98 06/29/16 23:59 95 Room Air 06/29/16 23:46 75 24 114/65 97 Room Air 06/29/16 23:45 77 22 110/66 97 Room Air 06/29/16 23:31 76 20 116/72 96 Room Air 06/29/16 23:10 70 16 136/95 95 Room Air 06/29/16 23:00 36.6 79 18 116/72 97 Room Air 06/29/16 23:00 70 16 126/80 95 Room Air 5/23/17 21:51 119/71 06/29/16 21:50 Nasal Cannula 2.0 06/29/16 21:50 69 133/74 99 06/29/16 21:45 64 100 06/29/16 21:41 122/65 06/29/16 21:40 72 100 06/29/16 21:36 115/73 06/29/16 21:36 100 Nasal Cannula 2.0 06/29/16 21:35 67 06/29/16 21:35 67 99 06/29/16 21:34 121/67 06/29/16 21:32 36.5 68 16 115/73 100 Nasal Cannula 2.0 06/29/16 21:32 100 Room Air 2.0 Lab Results: Results Past 24 Hours Test 06/29/16 21:37 06/29/16 21:40 06/29/16 21:44 06/29/16 21:45 Range/Units Creatine Kinase MB Ratio 4.4 0-3.0 Bedside Troponin I 0.060 0-0.045 ng/ml Bedside Hemoglobin 13.9 14.0-18.0 g/dl Bedside Hematocrit 41 42-52 % Bedside Sodium 140 135-144 mEq/L Bedside Potassium 3.5 3.3-5.0 mEq/L Bedside Chloride 101 101-112 mEq/L Bedside Total CO2 22 24-31 mEq/l Anion Gap 21.0 9.0 3-11 mmol/L Bedside Blood Urea Nitrogen 23 7-18 mg/dl Bedside Creatinine 1.2 0.6-1.3 mg/dl Bedside Glucose (other) 157 70-99 mg/dl Bedside Ionized Calcium (River) 1.08 1.12-1.32 mmol/l White Blood Count 12.44 4.8-10.8 K/uL Red Blood Count 4.56 4.7-6.1 M/uL Hemoglobin 13.9 14.0-18.0 g/dL Hematocrit 40.9 42-52 % Mean Corpuscular Volume 89.7 80-100 fL Mean Corpuscular Hemoglobin 30.5 25-34 pg Mean Corpuscular Hemoglobin Concent 34.0 32-36 g/dl Platelet Count 190 130-400 K/uL Mean Platelet Volume 10.4 7.4-10.4 fL Neutrophils (%) (Auto) 78.4 % Lymphocytes (%) (Auto) 16.5 % Monocytes (%) (Auto) 3.9 % Eosinophils (%) (Auto) 0.8 % Basophils (%) (Auto) 0.2 % Neutrophils # (Auto) 9.76 1.4-6.5 K/uL Lymphocytes # (Auto) 2.05 1.2-3.4 K/uL Monocytes # (Auto) 0.48 0.11-0.59 K/uL Eosinophils # (Auto) 0.10 0-0.5 K/uL Basophils # (Auto) 0.02 0-0.2 K/uL RDW Standard Deviation 42.3 36.4-46.3 fL RDW Coefficient of Variation 13.0 11.5-14.5 % Immature Granulocyte % (Auto) 0.2 % Immature Granulocyte # (Auto) 0.03 0.00-0.02 K/uL Prothrombin Time 10.1 9.0-12.0 SECONDS Prothromb Time International Ratio 0.9 0.9-1.1 Activated Partial Thromboplast Time 24.6 21.0-31.0 SECONDS Partial Thromboplastin Ratio 0.9 Sodium Level 139 136-145 mmol/L Potassium Level 3.4 3.5-5.1 mmol/L Chloride Level 104 98-107 mmol/L Carbon Dioxide Level 26 21-32 mmol/L Blood Urea Nitrogen 23 7-18 mg/dl Creatinine 1.30 0.60-1.40 mg/dl Est Creatinine Clear Calc Drug Dose 59.3 ml/min Estimated GFR () 66.8 Estimated GFR (Non- 57.7 BUN/Creatinine Ratio 17.5 10-20 Random Glucose 152 70-99 mg/dl Calcium Level 8.9 8.5-10.1 mg/dl Total Bilirubin 0.6 0.2-1 mg/dl Direct Bilirubin 0.1 0-0.2 mg/dl Aspartate Amino Transf (AST/SGOT) 24 15-37 U/L Alanine Aminotransferase (ALT/SGPT) 30 12-78 U/L Alkaline Phosphatase 60 45-117 U/L Total Creatine Kinase 152 39-308 U/L Creatine Kinase MB 6.7 0.5-3.6 ng/ml Total Protein 7.2 6.4-8.2 gm/dl Albumin 3.7 3.4-5.0 gm/dl Lipase 180 73-393 U/L Test 06/29/16 22:26 06/30/16 00:05 06/30/16 05:40 06/30/16 08:46 Range/Units Kaolin Activated Coagulation Time 420 94-140 SECONDS White Blood Count 11.68 9.17 4.8-10.8 K/uL Red Blood Count 4.57 4.35 4.7-6.1 M/uL Hemoglobin 13.6 13.1 14.0-18.0 g/dL Hematocrit 41.3 39.9 42-52 % Mean Corpuscular Volume 90.4 91.7 80-100 fL Mean Corpuscular Hemoglobin 29.8 30.1 25-34 pg Mean Corpuscular Hemoglobin Concent 32.9 32.8 32-36 g/dl Platelet Count 169 166 130-400 K/uL Mean Platelet Volume 10.2 10.7 7.4-10.4 fL Neutrophils (%) (Auto) 87.4 80.3 % Lymphocytes (%) (Auto) 9.2 13.7 % Monocytes (%) (Auto) 2.8 5.3 % Eosinophils (%) (Auto) 0.2 0.2 % Basophils (%) (Auto) 0.1 0.1 % Neutrophils # (Auto) 10.22 7.35 1.4-6.5 K/uL Lymphocytes # (Auto) 1.07 1.26 1.2-3.4 K/uL Monocytes # (Auto) 0.33 0.49 0.11-0.59 K/uL Eosinophils # (Auto) 0.02 0.02 0-0.5 K/uL Basophils # (Auto) 0.01 0.01 0-0.2 K/uL RDW Standard Deviation 42.7 44.2 36.4-46.3 fL RDW Coefficient of Variation 13.0 13.2 11.5-14.5 % Immature Granulocyte % (Auto) 0.3 0.4 % Immature Granulocyte # (Auto) 0.03 0.04 0.00-0.02 K/uL Sodium Level 142 141 136-145 mmol/L Potassium Level 4.1 4.4 3.5-5.1 mmol/L Chloride Level 107 109 98-107 mmol/L Carbon Dioxide Level 29 28 21-32 mmol/L Anion Gap 6.0 4.0 3-11 mmol/L Blood Urea Nitrogen 20 20 7-18 mg/dl Creatinine 1.10 0.94 0.60-1.40 mg/dl Est Creatinine Clear Calc Drug Dose 70.1 82.0 ml/min Estimated GFR () 81.8 98.9 Estimated GFR (Non- 70.6 85.3 BUN/Creatinine Ratio 18.5 21.0 10-20 Random Glucose 114 114 70-99 mg/dl Calcium Level 8.1 7.8 8.5-10.1 mg/dl Magnesium Level 2.1 1.8-2.4 mg/dl Total Creatine Kinase 218 444 39-308 U/L Creatine Kinase MB 27.9 92.9 0.5-3.6 ng/ml Creatine Kinase MB Ratio 12.8 20.9 0-3.0 Troponin I 2.970 18.900 0-0.045 ng/ml Triglycerides Level 39 0-150 mg/dl Cholesterol Level 169 0-200 mg/dl HDL Cholesterol 62 mg/dl LDL Cholesterol Direct 101 mg/dl LDL Cholesterol, Calculated mg/dl VLDL Cholesterol, Calculated 8 mg/dl Cholesterol/HDL Ratio 2.7 Hepatitis C Antibody Screen NEG NEG Test 06/30/16 11:10 06/30/16 15:29 Range/Units Bedside Glucose 93 70-99 mg/dl Creatine Kinase MB Ratio 0-3.0 Microbiology Results 06/29/16 MRSA DNA Surveillance Screen - Final, Complete Specimen Negative for MRSA by DNA Probe
[2016-06-30 16:12] LABS: CKMB/CK RATIO 19.1 (0-3.0)
--- NOTE | 2016-06-30 17:46 | Discharge Summary ---
Discharge Summary Date of Service June 30, 2016. Discharge Summary Admission Date: June 29, 2016 at 23:25 Discharge Date: June 30, 2016 Discharge Disposition: Acute [facility] Principal Diagnosis: STEMI S./P CARDIAC CATH: TRIPLE VESSEL DISEASE Secondary Diagnoses/Problems: 1) High cholesterol Procedures: S/P CARDIAC CATH ECHO: Normal LV chamber size and wall thickness. * Mildly reduced LV systolic function, EF 45-50%. * Moderate to severe hypokinesis of the mid to apical segments of the anterior/anteroseptal wan along with the apcial cap. * Grade II diastolic dysfunction. * No significant valvular pathology Consultations: CARDIOLOGY Medication Reconciliation Continued Medications: Tamsulosin HCl (Tamsulosin HCl) 0.4 Mg Cap 0.4 MG PO HS Discontinued Medications: Simvastatin (Zocor) 20 Mg Tab 20 MG PO QPM, TAB Admission Information HPI (per Admitting provider): Ken Matt is a 66-year-old with past medical hx of hyperlipidemia, no prior hx of [place] or CAD brought it ED via EMS with complain of chest pain after having dinner EKG : demonstrated ST elevation anteriorly with T-wave changes consistent with an [place]. Reciprocal changes were noted in the inferior leads. CODE HEART ALERT was called, pt was taken emergently to [facility] , found to have diffuse CAD underwent balloon angioplasty of LAD , admitted to ICU post procedure will need to be transferred to Tertiary center with coronary bypass facility for definitive cardiac intervention Physical Exam (per Admitting): General Appearance: no apparent distress Head: normocephalic, atraumatic Eyes: sclerae normal Neck: supple Respiratory/Chest: chest non-tender, lungs clear, normal breath sounds, no respiratory distress Cardiovascular: regular rate, rhythm Abdomen/GI: normal bowel sounds, non tender, soft Extremities/Musculoskelatal: no pedal edema Neurologic/Psych: alert, normal mood/affect, oriented x 3 Skin: normal color, warm/dry, no rash Hospital Course STEMI / Acute anterior myocardial infarction pt presented with chest pain EKG showed ST elevation in ant lead , reciprocal changed in inf lead CODE HEART ALERT was called pt was taken to [facility] emergently -underwent cardiac cath by Dr Hernandez by Right radial approach 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 Hernandez CABG recommended and plan to transfer to [place] started on Lopressor, aspirin, high dose statin and lisinopril stable currently HYPERLIPIDEMIA: High intensity statin dose -atorvastatin 80 mg daily started as per post [place] protocol Transfer to [place] Total time spent on discharge = 35MINUTES This includes examination of the patient, discharge planning, medication reconciliation, and communication with other providers. Discharge Instructions Discharge Instructions Date of Service June 30, 2016. Admission Reason for Admission: Chest Pain Discharge Discharge Diagnosis / Problem: stemi Discharge Goals Goal(s): Decrease discomfort, Improve function Activity Recommendations Activity Level: Bedrest . Additional Information Patient informed of condition: Yes Advance Directives: Yes DNR: No Level of Care: Other (ACUTE CARE FACILITY. [place]) Communicable Disease: No Prognosis: Stable Cannon Catheter: No Instructions / Follow-Up Instructions / Follow-Up FOLLOWUP RECOMMENDED PLEASE CHECK MEDICATION RECONCILIATION FOR ACCURATE MEDICATIONS. Current Hospital Diet Patient's current hospital diet: AHA Diet (Heart Healthy), Clear Liquid Diet Discharge Diet Recommended Diet: AHA Diet (Heart Healthy) Pending Studies Studies pending at discharge: no Physician Orders On Transfer IV Therapy: IV INTEGRILIN PER PROTOCOL IV FLUIDS Vital Signs: EVERY 8HRS Additional Orders: PLEASE CHECK MEDICATION RECONCILIATION FOR ACCURATE MEDICATIONS. Laboratory Results Hemoglobin A1c Test 06/29/16 00:05 Range/Units Estimated Average Glucose 111 mg/dl Hemoglobin A1c 5.5 4.5-5.6 % Lipid Panel Test 06/30/16 00:05 Range/Units Triglycerides Level 39 0-150 mg/dl Cholesterol Level 169 0-200 mg/dl HDL Cholesterol 62 mg/dl LDL Cholesterol Direct 101 mg/dl Cholesterol/HDL Ratio 2.7 LDL Cholesterol, Calculated mg/dl Medical Emergencies . Who to Call and When: Medical Emergencies: If at any time you feel your situation is an emergency, please call 911 immediately. . Non-Emergent Contact Non-Emergency issues call your: Primary Care Provider . . "Provider Documentation" section prepared by Hector Breen. . Core Measure Problem Core Measures: None AMI Core Measures Reason no ASA as I/P: Treatment provided - N/A Reason no statin as I/P: Treatment provided - N/A
== END 2016-06-30 16:47 | disposition short-term general hospital (02) | DRG 251 ==
LOC: C.ED 21:30 → C.MSICU 23:25
PROVIDERS: ADMIT Internal Medicine Cardiovascular Disease; ATTEND Internal Medicine
PROC: 4A023N7 Measurement of Cardiac Sampling and Pressure, Left Heart, Percutaneous Approach (ICD-10-PCS; principal; 2016-06-30)
PROC: B2111ZZ Fluoroscopy of Multiple Coronary Arteries using Low Osmolar Contrast (ICD-10-PCS; principal; 2016-06-30)
PROC: B2151ZZ Fluoroscopy of Left Heart using Low Osmolar Contrast (ICD-10-PCS; principal; 2016-06-30)
PROC: 02703ZZ Dilation of Coronary Artery, One Artery, Percutaneous Approach (ICD-10-PCS; principal; 2016-06-30)
DX: I21.09 ST elevation (STEMI) myocardial infarction involving other coronary artery of anterior wall (principal); R07.89 Other chest pain; E78.5 Hyperlipidemia, unspecified; E78.00 Pure hypercholesterolemia, unspecified; N40.0 Benign prostatic hyperplasia without lower urinary tract symptoms; I25.10 Atherosclerotic heart disease of native coronary artery without angina pectoris; Z82.49 Family history of ischemic heart disease and other diseases of the circulatory system; Z79.899 Other long term (current) drug therapy

== ENCOUNTER → 2016-09-03 | Outpatient (CLI) | payer OTHER ==
[~2016-09-03] MED LIST: FLM4 PO
[2016-09-03 12:28] LABS: AST/SGOT 22 U/L (15-37); BLOOD UREA NITROGEN 25 mg/dl (7-18); BUN/CREATININE RATIO 19.2 (10-20); CALCIUM 8.5 mg/dl (8.5-10.1); CARBON DIOXIDE 28 mmol/L (21-32); CHLORIDE 111 mmol/L (98-107); GLUCOSE 101 mg/dl (70-99); POTASSIUM 4.5 mmol/L (3.5-5.1); SODIUM 143 mmol/L (136-145)
[2016-09-03 12:29] LABS: ALT/SGPT 36 U/L (12-78)
[2016-09-03 12:32] LABS: HEMATOCRIT 42.4 % (42-52); MEAN CELL VOLUME 92.4 fL (80-100); MEAN CORPUSCULAR HEMOGLOBIN 30.1 pg (25-34); MEAN CORPUSCULAR HGB CONC 32.5 g/dl (32-36); MEAN PLATELET VOLUME 10.8 fL (7.4-10.4); PLATELET COUNT 204 K/uL (130-400); RED BLOOD COUNT 4.59 M/uL (4.7-6.1); WHITE BLOOD COUNT 7.27 K/uL (4.8-10.8)
== END | disposition home or self-care (01) ==
LOC: C.LABPVFM 07:32
PROVIDERS: ATTEND Physician Assistant
DX: I25.10 Atherosclerotic heart disease of native coronary artery without angina pectoris (principal)